=== PATIENT | male | born 1940 | race Caucasian/White ===

== ENCOUNTER 2016-10-14 03:25 | Inpatient (IN) | payer MEDICARE, BC ==
[~2016-10-14] VITALS: Ht 167.6 cm; Wt 86.1 kg
[~2016-10-14 03:25] MED LIST: ACET50TA PO; ALEV220C2 PO; ASPI81TA83 OR; DORZ2SOL OU; GLUC500T OR; GLYB2.5T6 OR; REST0.05 OU; TRAV0.00 OU; TRIC145T19 OR
[2016-10-14] MEDS ORDERED: FISH5CAP PO ×2 (03:39→07:48)
[2016-10-14] MEDS ORDERED: LIPI20TA PO (03:39)
[2016-10-14 04:58] LABS: BASO % 0.3 % (0.0-1.0); EOS # 0.2 K/mm3 (0.0-0.50); EOS % 2.5 % (0.0-3.0); LARGE UNSTAINED CELL # 0.2 K/mm3 (0.0-0.4); LARGE UNSTAINED CELL % 2.1 % (0.0-4.0); LYMPH # 0.8 K/mm3 (1.5-4.5); MEAN CORPUSCULAR HEMOGLOBIN 35.9 pg (27.0-33.0); MEAN CORPUSCULAR HGB CONC 34.7 g/dl (32.0-36.5); MEAN CORPUSCULAR VOLUME 103.4 fl (80.0-96.0); MONO # 0.4 K/mm3 (0.0-0.8); MONO % 5.2 % (0.0-5.0); NEUTROPHILS # 5.9 K/mm3 (1.8-7.7); NEUTROPHILS % 78.9 % (36.0-66.0); PLATELET COUNT, AUTOMATED 109 k/mm3 (150-450); RED CELL DISTRIBUTION WIDTH 12.3 % (11.5-14.5); VENOUS BASE EXCESS 0.7 (-2.0-2.0); VENOUS O2 SATURATION 95.7 % (60.0-80.0); VENOUS PARTIAL PRESSURE O2 76.4 mmHg (30.0-50.0); VENOUS STANDARD HCO3 25.1 MEQ/L; VENOUS TOTAL CO2 26.7 MEQ/L (24.0-28.0); WHITE BLOOD COUNT 7.5 K/mm3 (4.0-10.0)
[2016-10-14 05:23] LABS: ANION GAP 8 MEQ/L (8-16); BLOOD UREA NITROGEN 12 MG/DL (7-18); CALCIUM LEVEL 8.5 MG/DL (8.8-10.2); CARBON DIOXIDE LEVEL 30 MEQ/L (21-32); CHLORIDE LEVEL 99 MEQ/L (98-107); CREATININE FOR GFR 0.93 MG/DL (0.70-1.30); GLOMERULAR FILTRATION RATE > 60.0 (>42); GLUCOSE, FASTING 255 MG/DL (83-110); SODIUM LEVEL 137 MEQ/L (136-145)
[2016-10-14] MEDS: IPRATROPIUM 0.5MG/ALBUTEROL 2.5MG INH SOL UD 3ML (DUONEB)(J7620) NEB PRN (05:57)
[2016-10-14] MEDS ORDERED: FUROSEMIDE 40 MG/4 ML VIAL (J1940) IV ONE (06:45)
[2016-10-14] MEDS ORDERED: ATOR1TAB21 PO (07:48)
[2016-10-14] MEDS ORDERED: ICAP1CAP PO (07:48)
[2016-10-14] MEDS ORDERED: REFR0.5D8 OU (07:48)
[2016-10-14] MEDS ORDERED: TIMO5OPD OU (07:48)
[2016-10-14] MEDS ORDERED: XIID5DRO OU (07:48)
[2016-10-14] MEDS ORDERED: GLIP2.5T2 PO (07:48)
[2016-10-14] MEDS ORDERED: ALEV1TAB PO (07:48)
[2016-10-14] MEDS ORDERED: ALEV220T26 PO (07:48)
[2016-10-14] MEDS ORDERED: TYLE325T5 PO (07:50)
--- NOTE | 2016-10-14 08:37 | REP ---
Clinical: Cough and dyspnea . Comparison: 12/21/2013 . Technique: PA and lateral. Findings: The mediastinum and cardiac silhouette are normal. The lung armstrong demonstrate chronic-appearing changes without effusion, or pneumothorax. Subtle basilar atelectasis cannot be excluded. The skeletal structures are intact and normal. Impression: 1. Chronic-appearing stable changes. 2. Cannot exclude subtle basilar atelectasis. Signed by Vik Adame MD 10/14/2016 08:27 A
[2016-10-14] MEDS ORDERED: GLUCAGON FOR INJ 1 MG VIAL (J1610) SC PRN (09:00)
[2016-10-14] MEDS ORDERED: GLUCOSE 4 GM CHEW TABLET PO PRN (09:00)
[2016-10-14] MEDS ORDERED: POLYVINYL ALCOHOL OPHTH SOLN 15 ML(LIQUITEARS) OU PRN (09:00)
[2016-10-14] MEDS: ENOXAPARIN 40 MG/0.4 ML SYRINGE (J1650) SC SCH (09:00)
[2016-10-14] MEDS: TIMOLOL MALEATE 0.5% OPHTH SOLN 5 ML OU SCH ×2 (09:00→20:49)
[2016-10-14] MEDS ORDERED: DEXTROSE 50% 50 ML SYRINGE IV PRN (09:00)
[2016-10-14] MEDS ORDERED: ONDANSETRON 4MG/2ML VIAL (J2405) IV PRN (09:00)
[2016-10-14] MEDS: SIMETHICONE 80 MG CHEW TAB PO SCH ×4 (09:00→20:50)
[2016-10-14] MEDS ORDERED: ALBUTEROL SULFATE 2.5 MG/0.5 ML INH NEB SOLN INH PRN (09:00)
[2016-10-14] MEDS ORDERED: ACETAMINOPHEN TAB 650MG DOSE (2X325MG) PO PRN (09:00)
[2016-10-14] MEDS ORDERED: ENTER DRUG NAME HERE (PATIENT'S OWN MED) OU SCH (09:00)
--- NOTE | 2016-10-14 10:09 | HPE ---
DATE OF ADMISSION: 10/14/2016 Mr. Ramirez is a patient of Dr. Street and Dr. Francis. Chief complaint is "I was panicking because I couldn't breathe." SUMMARY OF PRESENTATION: This is a 76-year-old who has been feeling increasingly unwell for 6 days. 6 days ago, he had a sore throat, cough developed at around 5 days ago. He has had increasing shortness of breath for 2 days that developed. Friday evening preceding this admission when he noticed he had developed dyspnea on exertion, having trouble getting to the bathroom. It progressed to the point where he has dyspnea at rest currently. It was associated with subjective fever with an objective temperature of less than 100. He had no chills but was experiencing sweats. Did describe orthopnea but no paroxysmal nocturnal dyspnea. He does have new swelling of both feet. Over the last 3 days, he has spent most of his time laying in bed. He has not had a recent stress test or echocardiogram. Does follow with Dr. Francis every 6 months for a pacemaker check. He does have no chest discomfort or pain, but does have some what seems to be abdominal discomfort with deep breathing. He has noticed that his abdomen has become more distended as well. Past medical history is notable for diabetes, hyperlipidemia, sick sinus syndrome status post pacemaker, history of retinal detachment, history of glaucoma. He did get a flu shot this year. He has had his pneumococcal vaccine, hepatitis A, hepatitis B, Prevnar, Tdap and varicella. He has listed ALLERGIES to BACLOFEN, BLUE PIGMENT #63, ERYTHROMYCIN, CLARITIN and TAMIFLU. Tamiflu caused severe facial swelling. Medications at home include: - Tylenol as needed - Aleve P.M. - naproxen - glipizide/metformin 2.5/500 one tablet twice a day - multivitamins - atorvastatin 20 mg by mouth nightly - Artificial Tears - fish oil one capsule twice a day - Xiidra 5% drop both eyes twice a day - Timolol 0.5% one drop both eyes twice a day Socially, he lives in [place]. He is an avid fisherman but is beginning to transition to golf. [place] He lives with his . No smoking. Family history is notable for a mother who had of cancer, with coronary artery disease in his father. Surgical history is notable for left inguinal hernia repair, back surgery, hydrocele repair, lumbar laminectomy, left ankle cyst surgery, left eye tarsal strip, colonoscopy, right shoulder rotator cuff repair, pacemaker 2010, bilateral cataract extraction 2011, vitrectomy on the right in 2012, bilateral glaucoma correction 2012, retinal repair 2014, bilateral blepharoplasty 2016. Socially, he has not smoked in over 10 years. Review of systems is notable for no headache, no visual changes. He did not have runny nose. Sore throat has resolved. No neck pain. He does have cough and wheeze. Breathing is more difficult when he lays back. He says it sounds like there is two machines running in his chest when he tries to lay back to breathe and he becomes more short of breath. He has dyspnea on exertion. Although his abdomen is distended, he has no discomfort. He has been passing a lot more gas eructing. He has lower extremity edema. Otherwise unremarkable. On physical exam, temperature in the emergency room (ER) was recorded as 97.0, pulse 60, appears to be paced on monitor. Respiratory rate was 24 at 3 a.m., appears to be closer 18 on my exam. Blood pressure is currently 161/70, 90% on 2 liters nasal cannula. He is awake, appropriately interactive, pleasantly conversant, somewhat anxious about being in the hospital. He is apparently quit claustrophobic and being in a room without a window. It is negatively effecting his mental status currently. Sinus are nontender. Pupils equally round and reactive, anicteric. Nasal septum is midline. No nasal drainage is noted. Mucous membranes are moist. Neck is supple, thick. No obvious jugular venous pulse (JVP). Breathing is symmetrical with scattered crackles and occasional polyphonic wheeze. rested. There is no dullness to percussion. Heart is in regular rate and rhythm. Pacemaker is in place in the left upper chest. Radial pulses are 2+. Capillary refill is less than 2 seconds. There is 1+ lower extremity edema extending to just above the ankles. He is moving all four extremities. Strength is symmetrical. Cranial nerves II-XII are grossly intact. He seems slightly anxious with normal mood and affect. White cell count 7.5, hemoglobin 14.3, platelets of 109. BUN 12, creatinine 0.93. BNP is 43. 99.7. Blood gas is 7.41, 41, 76, 25 and 95% on supplemental oxygen. Blood cultures are pending. Chest x-ray shows chronic stable changes and is read as subtle basilar atelectasis. I am suspicious for some increase in vascular markings. EKG shows an interventricular conduction delay. No acute ST-T wave changes. My assessment is as follows: This is a 76-year-old at presentation with shortness of breath, dyspnea on exertion, orthopnea, cough in the setting of perhaps a viral prodrome. I am suspicious for decompensated congestive heart failure. Patient will be admitted to the progressive care unit (PCU) for at a two midnight hospital stay. Plan will be as follows: 1. Cardiovascular. Patient has history of sick sinus syndrome, has a pacemaker in place. Will pursue gentle diuresis, obtain old records from Francis's office, obtain a new 2D echocardiogram and monitor on telemetry. Will repeat troponins once. 2. Patient has diabetes. Will hold his metformin and glipizide. Will continue with insulin sliding scale coverage and a consistent carbohydrate, 2 gram sodium diet. 3. Patient has hyperlipidemia. Will continue his statin drug and fish oil. 4. Infectious disease. It is possible that patient has an element of bronchitis. I have elected to start nebulizer therapy likely, if it is not helpful can be discontinued tomorrow. I do not believe there is a role of steroids at this point, but again that can be considered pending on clinical course. I do believe there is a role for respiratory panel in an attempt to avoid antibiotics. Deep venous thrombosis (DVT) prophylaxis is ordered. 5. Patient is quite claustrophobic and I have asked that he be moved to a PCU room with a window as soon as reasonably possible. Although, the hospital is quite deluged with the patients .
[2016-10-14] MEDS: ALBUTEROL SULFATE 2.5 MG/0.5 ML INH NEB SOLN INH SCH ×4 (10:15→20:38)
[2016-10-14 11:17] VITALS: O2SAT 93
[2016-10-14 12:02] VITALS: BP 133/65
[2016-10-14] MEDS: HumaLOG INSULIN (NovoLOG) PER UNIT SC SCH ×3 (13:30→20:49)
[2016-10-14] MEDS: OMEGA-3 1050MG CAPSULE PO SCH ×2 (15:53→20:50)
[2016-10-14 16:00] VITALS: BP 151/69
[2016-10-14 17:00] VITALS: BP 150/58
[2016-10-14] MEDS ORDERED: FUROSEMIDE 40 MG/4 ML VIAL (J1940) IV SCH (17:00)
[2016-10-14 20:00] VITALS: BP 159/76
[2016-10-14] MEDS: ATORVASTATIN 20 MG TAB PO SCH (20:50)
--- NOTE | 2016-10-14 21:05 | ECGEPIP ---
Stationary ECG Study [facility] - ED Test Date: 2016-10-14 Pat Name: QUINN CORTEZ Department: Room: - Gender: M Armature Connector: AlejandroB: 1940 Requested By: WENCESLAO Prather Order Number: [id number] Reading MD: Adan Glasgow Measurements Intervals [place] Rate: 60 P: 81 CO: 212 QRS: 55 QRSD: 114 T: 52 QT: 422 QTc: 422 Interpretive Statements ELECTRONIC ATRIAL PACEMAKER MODERATE INTRAVENTRICULAR CONDUCTION DELAY NONSPECIFIC ST T WAVE CHANGES NO OLD ECG FOR COMPARISON Electronically Signed On 10-14-2016 21:05:23 EDT by Adan Glasgow
[2016-10-14 23:58] VITALS: BP 160/77
[2016-10-15 04:00] VITALS: BP 161/67
[2016-10-15 06:53] LABS: MEAN CORPUSCULAR HEMOGLOBIN 35.2 pg (27.0-33.0); MEAN CORPUSCULAR HGB CONC 34.8 g/dl (32.0-36.5); MEAN CORPUSCULAR VOLUME 101.3 fl (80.0-96.0); RED CELL DISTRIBUTION WIDTH 12.5 % (11.5-14.5); WHITE BLOOD COUNT 8.8 K/mm3 (4.0-10.0)
[2016-10-15 07:09] LABS: ANION GAP 6 MEQ/L (8-16); BLOOD UREA NITROGEN 18 MG/DL (7-18); CALCIUM LEVEL 9.4 MG/DL (8.8-10.2); CARBON DIOXIDE LEVEL 32 MEQ/L (21-32); CHLORIDE LEVEL 97 MEQ/L (98-107); CREATININE FOR GFR 0.96 MG/DL (0.70-1.30); GLOMERULAR FILTRATION RATE > 60.0 (>42); GLUCOSE, FASTING 271 MG/DL (83-110); MAGNESIUM LEVEL 2.2 MG/DL (1.8-2.4); POTASSIUM SERUM 3.6 MEQ/L (3.5-5.1); SODIUM LEVEL 135 MEQ/L (136-145)
[2016-10-15] MEDS: ALBUTEROL SULFATE 2.5 MG/0.5 ML INH NEB SOLN INH SCH ×4 (07:29→21:00)
[2016-10-15] MEDS ORDERED: guaiFENesin 200 MG TAB PO PRN (07:45)
--- NOTE | 2016-10-15 07:48 | IPNPDOC ---
Subjective Date Seen The patient was seen on 10/15/16. Subjective Chief Complaint/HPI The patient is a 76-year-old male admitted with a reason for visit of Chf Exacerbation. General: Denies: ROS Unobtainable, Chills, Night Sweats, Fatigue, Malaise, Normal Appetite, Other Symptoms Constitutional: Denies: Chills, Fever, Malaise, Night Sweats, Weakness, Fatigue , Weight Loss, Lethargy, Other Eyes: Denies: Pain, Vision change, Conjunctivae inflammation, Eyelid inflammation, Redness, Other ENT: Denies: Head Aches, Ear Pain, Dysphagia, Sinus Congestion, Post Nasal Drip , Sore Throat, Epistaxis, Other Symptoms Skin: Denies: Rash, Lesions, Jaundice, Bruising, Itching, Dry, Breakdown, Nail Changes, Other Pulmonary: Reports: Dyspnea, Cough, Denies: Pleuritic Chest Pain, Other Symptoms Cardiovascular: Reports: Orthopnea, Denies: Chest Pain, Palpitations, Paroxysmal Noc. Dyspnea, Edema, Lt Headedness, Other Symptoms Gastrointestinal: Denies: Nausea, Vomiting, Abdominal Pain, Diarrhea, Constipation, Melena, Hematochezia, Other Symptoms Genitourinary: Denies: Dysuria, Frequency, Incontinence, Hematuria, Retention, Other Symptoms Endocrine: Denies: Polydipsia, Polyuria Objective Physical Examination General Exam: Positive: Alert, Cooperative, No Acute Distress Eye Exam: Positive: PERRLA, Conjunctiva & lids normal, Negative: EOMI Chest Exam: Positive: Normal air movement, Other (b/l crackles) Heart Exam: Positive: Rate Normal Telemetry: Positive: No significant arrhythmia, Sinus Abdomen Exam: Positive: Normal bowel sounds, Soft Extremity Exam: Negative: Edema Psych Exam: Positive: Oriented x 3 Assessment /Plan Problems (1) CHF exacerbation Status: Acute Discussed With: Patient Problem Specific Plan: Monitor Clinically, Repeat Labs, Repeat Tests Problem Text: increase lasix to q8h with net negative 2500 daily threshold 2d echo pending IS, mucolytics, acapella (2) DM2 (diabetes mellitus, type 2) Permanent Comment: On glyburide and metformin; last HgbA1c 5.4% in 03/2013. Last Edited By: Joshua Street M.D. on Jul 27, 2013 20:39 Status: Chronic Discussed With: Patient Problem Specific Plan: Repeat Labs Problem Text: Previous A1C noted. Will f/u as o/p with PCP. (3) Mixed hyperlipidemia Permanent Comment: Not on statin but control reasonable in 03/2013. Abnormal transaminases have delayed therapy. Last Edited By: Joshua Street M.D. on Jul 20:40 Status: Chronic Discussed With: Patient Problem Text: Follow up as o/p with PCP. (4) Cardiac pacemaker in situ Permanent Comment: Pacemaker placed in 2010 for sick sinus syndrome. Last Edited By: Joshua Street M.D. on Jul 27, 2013 20:41 Status: Chronic Discussed With: Patient Problem Specific Plan: Monitor Clinically (5) Glaucoma Status: Chronic Plan/VTE VTE Prophylaxis Ordered?: Yes Plan Diet: Continue Current Activity: Continue Current Diagnostics: Repeat Labs in AM, TTE Anticipated Discharge: Home, Home With Services VS, I&O, 24H, Fishbone Vital Signs/I&O Vital Signs Date Time Temp Pulse Resp B/P (MAP) Pulse Ox O2 Delivery O2 Flow Rate FiO2 10/15/16 04:00 97.5 70 20 161/67 (98) 95 Nasal Cannula 2.0 I&O- Last 24 Hours up to 6 AM 10/15/16 06:00 Intake Total 995 ml Output Total 1900 ml Balance -905 ml Laboratory Data 24H LABS Laboratory Tests 2 10/14/16 09:28: Magnesium Level 1.9 10/14/16 12:04: Total Creatine Kinase 133, Creatine Kinase MB 1.4, Creatine Kinase MB Relative Index 1.05, Troponin I < 0.02 10/14/16 12:32: Bedside Glucose (Misc Panel) 368H 10/14/16 17:12: Bedside Glucose (Misc Panel) 289H 10/14/16 20:38: Bedside Glucose (Misc Panel) 367H 10/15/16 06:34: Anion Gap 6L, Glomerular Filtration Rate > 60.0, Blood Urea Nitrogen 18, Creatinine 0.96, Sodium Level 135L, Potassium Level 3.6, Chloride Level 97L, Carbon Dioxide Level 32, Calcium Level 9.4, Magnesium Level 2.2 CBC/BMP Laboratory Tests 10/15/16 06:34 Red Blood Count 4.24 L, Mean Corpuscular Volume 101.3 H, Mean Corpuscular Hemoglobin 35.2 H, Mean Corpuscular Hemoglobin Concent 34.8, Red Cell Distribution Width 12.5, Calcium Level 9.4 Microbiology Microbiology 10/14/16 Blood Culture - Preliminary, Resulted No growth after 24 hours . All specim... 10/14/16 Blood Culture - Preliminary, Resulted No growth after 24 hours . All specim... 10/14/16 Respiratory Virus Panel (PCR) ([facility]) - Final, Complete Human Metapneumovirus ADELINE SAMUEL MD October 15, 2016 07:48
[2016-10-15 08:00] VITALS: BP 154/68
[2016-10-15] MEDS: FUROSEMIDE 40 MG/4 ML VIAL (J1940) IV SCH ×3 (08:45→23:35)
[2016-10-15] MEDS: HumaLOG INSULIN (NovoLOG) PER UNIT SC SCH ×4 (08:45→20:50)
[2016-10-15] MEDS: OMEGA-3 1050MG CAPSULE PO SCH ×2 (08:45→20:51)
[2016-10-15] MEDS: TIMOLOL MALEATE 0.5% OPHTH SOLN 5 ML OU SCH ×2 (08:46→20:51)
[2016-10-15] MEDS: ENOXAPARIN 40 MG/0.4 ML SYRINGE (J1650) SC SCH (08:46)
[2016-10-15 12:00] VITALS: BP 140/63
[2016-10-15 16:00] VITALS: BP 148/65
[2016-10-15 20:00] VITALS: BP 133/61
[2016-10-15] MEDS: ATORVASTATIN 20 MG TAB PO SCH (20:51)
[2016-10-15 23:59] VITALS: BP 143/68
[2016-10-16] VITALS (7 sets, daily range): BP systolic 130–157; BP diastolic 70–74; O2SAT 94
[2016-10-16 05:18] LABS: MEAN CORPUSCULAR HEMOGLOBIN 36.5 pg (27.0-33.0); MEAN CORPUSCULAR HGB CONC 35.4 g/dl (32.0-36.5); MEAN CORPUSCULAR VOLUME 103.1 fl (80.0-96.0); RED CELL DISTRIBUTION WIDTH 12.2 % (11.5-14.5); WHITE BLOOD COUNT 7.6 K/mm3 (4.0-10.0)
[2016-10-16 05:34] LABS: ALBUMIN 3.6 GM/DL (3.2-5.2); ALBUMIN/GLOBULIN RATIO 0.82 (1.00-1.93); ALKALINE PHOSPHATASE 114 U/L (45-117); ALT/SGPT 24 U/L (12-78); ANION GAP 12 MEQ/L (8-16); AST/SGOT 20 U/L (15-37); BILIRUBIN,TOTAL 1.4 MG/DL (0.2-1.0); BLOOD UREA NITROGEN 23 MG/DL (7-18); CALCIUM LEVEL 8.7 MG/DL (8.8-10.2); CARBON DIOXIDE LEVEL 30 MEQ/L (21-32); CHLORIDE LEVEL 94 MEQ/L (98-107); CHOLESTEROL LEVEL 91 MG/DL (<200); CREATININE FOR GFR 1.07 MG/DL (0.70-1.30); GLOMERULAR FILTRATION RATE > 60.0 (>42); GLUCOSE, FASTING 281 MG/DL (83-110); MAGNESIUM LEVEL 1.8 MG/DL (1.8-2.4); POTASSIUM SERUM 3.2 MEQ/L (3.5-5.1); SODIUM LEVEL 136 MEQ/L (136-145); TRIGLYCERIDES LEVEL 116 MG/DL (<150)
[2016-10-16] MEDS ORDERED: POTASSIUM CHLORIDE 10 MEQ SR TABLET PO ONE (06:30)
[2016-10-16] MEDS: ALBUTEROL SULFATE 2.5 MG/0.5 ML INH NEB SOLN INH SCH ×4 (07:10→19:59)
--- NOTE | 2016-10-16 08:25 | IPNPDOC ---
Subjective Date Seen The patient was seen on 10/16/16. Subjective Chief Complaint/HPI The patient is a 76-year-old male admitted with a reason for visit of Chf Exacerbation. General: Denies: ROS Unobtainable, Chills, Night Sweats, Fatigue, Malaise, Normal Appetite, Other Symptoms Constitutional: Denies: Chills, Fever, Malaise, Night Sweats, Weakness, Fatigue , Weight Loss, Lethargy, Other Eyes: Denies: Pain, Vision change, Conjunctivae inflammation, Eyelid inflammation, Redness, Other ENT: Denies: Head Aches, Ear Pain, Dysphagia, Sinus Congestion, Post Nasal Drip , Sore Throat, Epistaxis, Other Symptoms Skin: Denies: Rash, Lesions, Jaundice, Bruising, Itching, Dry, Breakdown, Nail Changes, Other Pulmonary: Reports: Dyspnea, Cough, Denies: Pleuritic Chest Pain, Other Symptoms Cardiovascular: Denies: Chest Pain, Palpitations, Orthopnea, Paroxysmal Noc. Dyspnea, Edema, Lt Headedness, Other Symptoms Gastrointestinal: Denies: Nausea, Vomiting, Abdominal Pain, Diarrhea, Constipation, Melena, Hematochezia, Other Symptoms Genitourinary: Denies: Dysuria, Frequency, Incontinence, Hematuria, Retention, Other Symptoms Objective Physical Examination General Exam: Positive: Alert, Cooperative, No Acute Distress Eye Exam: Positive: PERRLA, Conjunctiva & lids normal, Negative: EOMI Chest Exam: Positive: Normal air movement, Other (b/l crackles) Heart Exam: Positive: Rate Normal Telemetry: Positive: No significant arrhythmia, Sinus Abdomen Exam: Positive: Normal bowel sounds, Soft Extremity Exam: Negative: Edema Psych Exam: Positive: Oriented x 3 Assessment /Plan Problems (1) CHF exacerbation Status: Acute Discussed With: Patient Problem Specific Plan: Monitor Clinically, Repeat Labs, Repeat Tests Problem Text: increase lasix to q6h with net negative 2500 daily threshold 2d echo pending IS, mucolytics, acapella ct chest pending sob likely complicated with viral illness - human metapneumovirus (2) DM2 (diabetes mellitus, type 2) Permanent Comment: On glyburide and metformin; last HgbA1c 5.4% in 03/2013. Last Edited By: Joshua Street M.D. on Jul 27, 2013 20:39 Status: Chronic Discussed With: Patient Problem Specific Plan: Repeat Labs Problem Text: Previous A1C noted. Will f/u as o/p with PCP. (3) Mixed hyperlipidemia Permanent Comment: Not on statin but control reasonable in 03/2013. Abnormal transaminases have delayed therapy. Last Edited By: Johsua Street M.D. on Jul 20:40 Status: Chronic Discussed With: Patient Problem Text: Follow up as o/p with PCP. (4) Cardiac pacemaker in situ Permanent Comment: Pacemaker placed in 2010 for sick sinus syndrome. Last Edited By: Joshua Street M.D. on Jul 27, 2013 20:41 Status: Chronic Discussed With: Patient Problem Specific Plan: Monitor Clinically (5) Glaucoma Status: Chronic Plan/VTE VTE Prophylaxis Ordered?: Yes Plan Diet: Continue Current Activity: Continue Current Respiratory: Wean Oxygen Diagnostics: Repeat Labs in AM, CT, TTE Anticipated Discharge: Home, Home With Services VS, I&O, 24H, Fishbone Vital Signs/I&O Vital Signs Date Time Temp Pulse Resp B/P (MAP) Pulse Ox O2 Delivery O2 Flow Rate FiO2 10/16/16 07:45 97.5 85 20 130/72 (91) 94 Nasal Cannula 2.0 I&O- Last 24 Hours up to 6 AM 10/16/16 06:00 Intake Total 1440 ml Output Total 2650 ml Balance -1210 ml Laboratory Data 24H LABS Laboratory Tests 2 10/16/16 05:00: Anion Gap 12, Glomerular Filtration Rate > 60.0, Blood Urea Nitrogen 23H, Creatinine 1.07, Sodium Level 136, Potassium Level 3.2L, Chloride Level 94L, Carbon Dioxide Level 30, Calcium Level 8.7L, Aspartate Amino Transf (AST/SGOT) 20, Alanine Aminotransferase (ALT/SGPT) 24, Alkaline Phosphatase 114, Total Bilirubin 1.4H, Triglycerides Level 116, LDL Cholesterol 24.8, Total Protein 8.0 , Albumin 3.6, Magnesium Level 1.8, Albumin/Globulin Ratio 0.82L, Total Cholesterol 91, Non-HDL Cholesterol (LDL + VLDL) 48, Total HDL Cholesterol 43, Cholesterol/HDL Ratio 2.116 CBC/BMP Laboratory Tests 10/16/16 05:00 Red Blood Count 4.19 L, Mean Corpuscular Volume 103.1 H, Mean Corpuscular Hemoglobin 36.5 H, Mean Corpuscular Hemoglobin Concent 35.4, Red Cell Distribution Width 12.2, Calcium Level 8.7 L, Aspartate Amino Transf (AST/SGOT) 20, Alanine Aminotransferase (ALT/SGPT) 24, Alkaline Phosphatase 114, Total Bilirubin 1.4 H, Triglycerides Level 116, LDL Cholesterol 24.8, Total Protein 8.0, Albumin 3.6 Microbiology Microbiology 10/14/16 Blood Culture - Preliminary, Resulted No Growth after 48 hours. All Specime... 10/14/16 Blood Culture - Preliminary, Resulted No Growth after 48 hours. All Specime... 10/14/16 Respiratory Virus Panel (PCR) ([facility]) - Final, Complete Human Metapneumovirus ADELINE SAMUEL MD October 16, 2016 08:25
[2016-10-16] MEDS: TIMOLOL MALEATE 0.5% OPHTH SOLN 5 ML OU SCH ×2 (08:33→21:31)
[2016-10-16] MEDS: ENOXAPARIN 40 MG/0.4 ML SYRINGE (J1650) SC SCH (08:33)
[2016-10-16] MEDS: OMEGA-3 1050MG CAPSULE PO SCH ×2 (08:33→21:31)
[2016-10-16] MEDS: HumaLOG INSULIN (NovoLOG) PER UNIT SC SCH ×4 (08:33→21:31)
--- NOTE | 2016-10-16 10:03 | REP ---
Clinical: Shortness of breath. Comparison: 08/23/2010. Findings: Moderate diffuse bronchiectasis and age-related scattered scarring / interstitial changes are appreciated primarily involving the perihilar and left lower lobe regions. A few bullae in the right lower lobe measure up to 2.3 cm diameter. A chronic benign calcified granuloma is noted in the periphery of the right upper lobe and stable. No consolidation, significant nodule or mass lesion. No pleural effusion. No pneumothorax. No obvious axillary, hilar, or mediastinal adenopathy. Mediastinum demonstrates atherosclerotic changes to the thoracic aorta and coronary arteries without aortic aneurysm, cardiomegaly, or pericardial effusion. Surrounding osseous structures demonstrate degenerative changes. Impression: Chronic changes including moderate bronchiectasis and minimal scattered scarring / interstitial changes. No acute consolidation. Signed by Vik Adame MD 10/16/2016 09:55 A
[2016-10-16] MEDS: FUROSEMIDE 40 MG/4 ML VIAL (J1940) IV SCH ×3 (11:28→23:51)
[2016-10-16] MEDS: ATORVASTATIN 20 MG TAB PO SCH (21:31)
[2016-10-17 04:45] VITALS: BP 136/67
[2016-10-17 05:33] LABS: MEAN CORPUSCULAR HEMOGLOBIN 34.9 pg (27.0-33.0); MEAN CORPUSCULAR HGB CONC 34.8 g/dl (32.0-36.5); MEAN CORPUSCULAR VOLUME 100.5 fl (80.0-96.0); RED CELL DISTRIBUTION WIDTH 12.3 % (11.5-14.5); WHITE BLOOD COUNT 9.2 K/mm3 (4.0-10.0)
[2016-10-17] MEDS: FUROSEMIDE 40 MG/4 ML VIAL (J1940) IV SCH (05:40)
[2016-10-17 05:43] LABS: ANION GAP 7 MEQ/L (8-16); BLOOD UREA NITROGEN 24 MG/DL (7-18); CALCIUM LEVEL 8.7 MG/DL (8.8-10.2); CARBON DIOXIDE LEVEL 36 MEQ/L (21-32); CHLORIDE LEVEL 92 MEQ/L (98-107); CREATININE FOR GFR 1.15 MG/DL (0.70-1.30); GLOMERULAR FILTRATION RATE > 60.0 (>42); GLUCOSE, FASTING 279 MG/DL (83-110); POTASSIUM SERUM 3.4 MEQ/L (3.5-5.1); SODIUM LEVEL 135 MEQ/L (136-145)
[2016-10-17] MEDS: ALBUTEROL SULFATE 2.5 MG/0.5 ML INH NEB SOLN INH SCH ×4 (07:36→19:49)
[2016-10-17 07:46] VITALS: BP 135/75
[2016-10-17] MEDS: HumaLOG INSULIN (NovoLOG) PER UNIT SC SCH ×4 (07:54→21:15)
[2016-10-17] MEDS: OMEGA-3 1050MG CAPSULE PO SCH ×2 (08:55→21:14)
[2016-10-17] MEDS: TIMOLOL MALEATE 0.5% OPHTH SOLN 5 ML OU SCH ×2 (08:55→23:06)
[2016-10-17] MEDS: ENOXAPARIN 40 MG/0.4 ML SYRINGE (J1650) SC SCH (08:55)
--- NOTE | 2016-10-17 09:00 | IPNPDOC ---
Subjective Date Seen The patient was seen on 10/17/16. Subjective Chief Complaint/HPI The patient is a 76-year-old male admitted with a reason for visit of Chf Exacerbation. General: Denies: ROS Unobtainable, Chills, Night Sweats, Fatigue, Malaise, Normal Appetite, Other Symptoms Constitutional: Denies: Chills, Fever, Malaise, Night Sweats, Weakness, Fatigue , Weight Loss, Lethargy, Other Eyes: Denies: Pain, Vision change, Conjunctivae inflammation, Eyelid inflammation, Redness, Other ENT: Denies: Head Aches, Ear Pain, Dysphagia, Sinus Congestion, Post Nasal Drip , Sore Throat, Epistaxis, Other Symptoms Skin: Denies: Rash, Lesions, Jaundice, Bruising, Itching, Dry, Breakdown, Nail Changes, Other Pulmonary: Reports: Dyspnea, Denies: Cough, Pleuritic Chest Pain, Other Symptoms Cardiovascular: Denies: Chest Pain, Palpitations, Orthopnea, Paroxysmal Noc. Dyspnea, Edema, Lt Headedness, Other Symptoms Gastrointestinal: Denies: Nausea, Vomiting, Abdominal Pain, Diarrhea, Constipation, Melena, Hematochezia, Other Symptoms Genitourinary: Denies: Dysuria, Frequency, Incontinence, Hematuria, Retention, Other Symptoms Objective Physical Examination General Exam: Positive: Alert, Cooperative, No Acute Distress Eye Exam: Positive: PERRLA, Conjunctiva & lids normal, Negative: EOMI Chest Exam: Positive: Normal air movement, Other (b/l crackles) Heart Exam: Positive: Rate Normal Telemetry: Positive: No significant arrhythmia, Sinus, Bradycardia, Other Telemetry: (paced rhythm, rolf) Abdomen Exam: Positive: Normal bowel sounds, Soft Extremity Exam: Negative: Edema Psych Exam: Positive: Oriented x 3 Assessment /Plan Problems (1) CHF exacerbation Status: Resolved Discussed With: Patient Problem Specific Plan: Monitor Clinically, Repeat Labs, Repeat Tests Problem Text: appears euvolemic today - grossly compensated 2d echo pending IS, increase dosage mucolytics - patient states still difficulty with expectorating, acapella ct chest noted sob likely complicated with viral illness - human metapneumovirus (2) DM2 (diabetes mellitus, type 2) Permanent Comment: On glyburide and metformin; last HgbA1c 5.4% in 03/2013. Last Edited By: Joshua Street M.D. on Jul 27, 2013 20:39 Status: Chronic Discussed With: Patient Problem Specific Plan: Repeat Labs Problem Text: Previous A1C noted. Will f/u as o/p with PCP. (3) Mixed hyperlipidemia Permanent Comment: Not on statin but control reasonable in 03/2013. Abnormal transaminases have delayed therapy. Last Edited By: Joshua Street M.D. on Jul 20:40 Status: Chronic Discussed With: Patient Problem Text: Follow up as o/p with PCP. (4) Cardiac pacemaker in situ Permanent Comment: Pacemaker placed in 2010 for sick sinus syndrome. Last Edited By: Joshua Street M.D. on Jul 27, 2013 20:41 Status: Chronic Discussed With: Patient Problem Specific Plan: Monitor Clinically (5) Glaucoma Status: Chronic Plan/VTE VTE Prophylaxis Ordered?: Yes Plan Diet: Continue Current Activity: Continue Current Therapy: PT Respiratory: Wean Oxygen Diagnostics: Repeat Labs in AM, TTE Anticipated Discharge: Home Wean O2, increase mucolytics, d/c diuretics, transfer to floor VS, I&O, 24H, Fishbone Vital Signs/I&O Vital Signs Date Time Temp Pulse Resp B/P (MAP) Pulse Ox O2 Delivery O2 Flow Rate FiO2 10/17/16 07:46 96.7 85 18 135/75 (95) 92 Nasal Cannula 1.0 I&O- Last 24 Hours up to 6 AM 10/17/16 05:59 Intake Total 1440 ml Output Total 2400 ml Balance -960 ml Laboratory Data 24H LABS Laboratory Tests 2 10/16/16 11:07: Bedside Glucose (Misc Panel) 398H 10/16/16 16:27: Bedside Glucose (Misc Panel) 361H 10/16/16 21:11: Bedside Glucose (Misc Panel) 354H 10/17/16 05:08: Anion Gap 7L, Glomerular Filtration Rate > 60.0, Blood Urea Nitrogen 24H, Creatinine 1.15, Sodium Level 135L, Potassium Level 3.4L, Chloride Level 92L, Carbon Dioxide Level 36H, Calcium Level 8.7L, Magnesium Level 2.0 CBC/BMP Laboratory Tests 10/17/16 05:08 Red Blood Count 4.39, Mean Corpuscular Volume 100.5 H, Mean Corpuscular Hemoglobin 34.9 H, Mean Corpuscular Hemoglobin Concent 34.8, Red Cell Distribution Width 12.3, Calcium Level 8.7 L Microbiology Microbiology 10/14/16 Blood Culture - Preliminary, Resulted No Growth after 72 hours. All specime... 10/14/16 Blood Culture - Preliminary, Resulted No Growth after 72 hours. All specime... 10/14/16 Respiratory Virus Panel (PCR) ([facility]) - Final, Complete Human Metapneumovirus ADELINE SAMUEL MD October 17, 2016 09:00
[2016-10-17] MEDS: guaiFENesin 200 MG TAB PO SCH ×3 (12:03→23:06)
[2016-10-17 15:28] VITALS: BP 174/77
--- NOTE | 2016-10-17 17:01 | ECHO ---
DATE OF PROCEDURE: 10/15/2016 REFERRING PHYSICIAN: Jonathan Sultana MD INDICATION: Localized edema. HEIGHT: 168 cm WEIGHT: 90 kg 2D MEASUREMENTS: LVOT: 1.8 cm Ventricular septum: 1.22 cm Posterior wall: 1.21 cm Left ventricle diastole: 3.3 cm Left atrium: 3.1 cm Aortic root: 3.3 cm Inferior vena cava: 1.9 cm DOPPLER MEASUREMENTS: Aortic valve velocity: 239 cm/s Peak aortic valve gradient: 23 mmHg Mean aortic valve gradient: 12 mmHg LVOT velocity: 75.9 cm/s Mitral E velocity: 62.7 cm/s Mitral A velocity: 92.8 cm/s Mitral deceleration time: 444 ms Very mild tricuspid regurgitation. Estimated right ventricle systolic pressure 28 mmHg assuming a right atrial pressure of 5 mmHg. Pulmonary artery systolic pressure 25 mmHg by pulmonary acceleration time method. MITRAL ANNULAR TISSUE DOPPLER: E prime septal: 6.6 cm/s E prime lateral: 8.3 cm/s DESCRIPTION: Rhythm was a mix of mostly atrial paced rhythm and perhaps some sinus rhythm. This was a moderately technically difficult echocardiogram. No pericardial effusion. This was a 2D, M-mode, color flow Doppler and pulse wave Doppler examination that included mitral annular tissue Doppler. CONCLUSIONS: 1. Very mild concentric left ventricle hypertrophy. Normal left ventricle (LV) wall motion and wall thickening. Normal LV systolic function. Left ventricular ejection fraction (LVEF) of 65% by visual estimate. Grade 1 LV diastolic dysfunction (impaired relaxation filling pattern). 2. 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 Very mild aortic stenosis. No aortic regurgitation. 3. Mild mitral annular calcification. No mitral regurgitation detected. 4. Presence of endocardial, right atrial and right ventricle pacemaker leads. 5. Moderately technically difficult echocardiogram.
[2016-10-17] MEDS: ATORVASTATIN 20 MG TAB PO SCH (21:15)
[2016-10-17 22:00] VITALS: BP 164/75
[2016-10-18 06:00] VITALS: BP 156/75
[2016-10-18] MEDS: guaiFENesin 200 MG TAB PO SCH (06:04)
[2016-10-18 06:15] LABS: MEAN CORPUSCULAR HEMOGLOBIN 35.8 pg (27.0-33.0); MEAN CORPUSCULAR HGB CONC 35.1 g/dl (32.0-36.5); MEAN CORPUSCULAR VOLUME 102.1 fl (80.0-96.0); WHITE BLOOD COUNT 7.8 K/mm3 (4.0-10.0)
[2016-10-18 06:29] LABS: ANION GAP 7 MEQ/L (8-16); BLOOD UREA NITROGEN 25 MG/DL (7-18); CALCIUM LEVEL 8.6 MG/DL (8.8-10.2); CARBON DIOXIDE LEVEL 34 MEQ/L (21-32); CHLORIDE LEVEL 94 MEQ/L (98-107); CREATININE FOR GFR 1.01 MG/DL (0.70-1.30); GLOMERULAR FILTRATION RATE > 60.0 (>42); GLUCOSE, FASTING 247 MG/DL (83-110); MAGNESIUM LEVEL 2.1 MG/DL (1.8-2.4); POTASSIUM SERUM 3.3 MEQ/L (3.5-5.1); SODIUM LEVEL 135 MEQ/L (136-145)
[2016-10-18] MEDS: ALBUTEROL SULFATE 2.5 MG/0.5 ML INH NEB SOLN INH SCH (07:25)
[2016-10-18] MEDS ORDERED: POTASSIUM CHLORIDE 10 MEQ SR TABLET PO ONE (08:45)
[2016-10-18] MEDS: ENOXAPARIN 40 MG/0.4 ML SYRINGE (J1650) SC SCH (08:58)
[2016-10-18] MEDS: OMEGA-3 1050MG CAPSULE PO SCH (08:58)
[2016-10-18] MEDS: HumaLOG INSULIN (NovoLOG) PER UNIT SC SCH (08:59)
[2016-10-18] MEDS: TIMOLOL MALEATE 0.5% OPHTH SOLN 5 ML OU SCH (09:04)
--- NOTE | 2016-10-18 10:26 | DS.PDOC ---
Discharge Summary General Date of Admission October 14, 2016 at 08:47 Date of Discharge 10/18/16 Primary Care Physician: Joshua Street Discharge Summary PROCEDURES PERFORMED DURING STAY: [None]. DISCHARGE DIAGNOSES: 1. CHF grade 1 LV diastolic dysfunction 2. Viral respiratory infection - human metapneumovirus 3. diabetes 4. dyslipidemia 5. SSS - s/p PPM 6. glaucoma COMPLICATIONS/CHIEF COMPLAINT: Chf Exacerbation. HOSPITAL COURSE: 76 yo male presented for one week history of sore throat, cough and shortness of breath with subjective fevers. Admits to sick contacts with viral upper respiratory illness. Was found to be in respiratory distress requiring supplemental oxygen, clinically in heart failure including orthopnea and lower extremity edema. Responded well to diuresis with IV lasix, but was still short of breath with mild increase in creatinine, and clinical euvolemia. Lasix discontinued, mucolytics increased with acapella and incentive spirometry. Respiratory status improved with good oxygen saturation on room air. Discharged in stable condition with instructions as indicated. DISCHARGE MEDICATIONS: Please see below. ALLERGIES: Please see below. PHYSICAL EXAMINATION ON DISCHARGE: VITAL SIGNS: Please see below. GENERAL: NAD HEENT: NC/AT, EOMI, PERRL NECK: supple CARDIOVASCULAR EXAMINATION: +S1S2, RRR RESPIRATORY EXAMINATION: CTA B/L ABDOMINAL EXAMINATION: soft, NT, +BS EXTREMITIES: no edema LABORATORY DATA: Please see below. IMAGIND Echo CONCLUSIONS: 1. Very mild concentric left ventricle hypertrophy. Normal left ventricle (LV) wall motion and wall thickening. Normal LV systolic function. Left ventricular ejection fraction (LVEF) of 65% by visual estimate. Grade 1 LV diastolic dysfunction (impaired relaxation filling pattern). 2. 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 Very mild aortic stenosis. No aortic regurgitation. 3. Mild mitral annular calcification. No mitral regurgitation detected. 4. Presence of endocardial, right atrial and right ventricle pacemaker leads. 5. Moderately technically difficult echocardiogram. PROGNOSIS: Stable ACTIVITY: [As tolerated]. DIET: Carb consistent DISCHARGE PLAN: DISPOSITION: Discharge home DISCHARGE INSTRUCTIONS: 1. Follow up PCP Dr. Street as scheduled Friday10/22/16 2. Medications as directed. DISCHARGE CONDITION: [Stable]. TIME SPENT ON DISCHARGE: Greater than 30 minutes. Vital Signs/I&Os Vital Signs Date Time Temp Pulse Resp B/P (MAP) Pulse Ox O2 Delivery O2 Flow Rate FiO2 5/19/17 09:14 92 Room Air 10/18/16 06:00 97.7 78 16 156/75 (102) 10/17/16 07:46 1.0 I&O- Last 24 Hours up to 6 AM 10/18/16 06:00 Intake Total 2160 ml Output Total 1000 ml Balance 1160 ml Laboratory Data Labs 24H Laboratory Tests 2 10/17/16 11:46: Bedside Glucose (Misc Panel) 337H 10/17/16 16:52: Bedside Glucose (Misc Panel) 378H 10/17/16 20:20: Bedside Glucose (Misc Panel) 391H 10/18/16 05:55: Anion Gap 7L, Glomerular Filtration Rate > 60.0, Blood Urea Nitrogen 25H, Creatinine 1.01, Sodium Level 135L, Potassium Level 3.3L, Chloride Level 94L, Carbon Dioxide Level 34H, Calcium Level 8.6L, Magnesium Level 2.1 CBC/BMP Laboratory Tests 10/18/16 05:55 Red Blood Count 4.16 L, Mean Corpuscular Volume 102.1 H, Mean Corpuscular Hemoglobin 35.8 H, Mean Corpuscular Hemoglobin Concent 35.1, Red Cell Distribution Width 12.0, Calcium Level 8.6 L FSBS Laboratory Tests Test 10/17/16 11:46 10/17/16 16:52 10/17/16 20:20 Range/Units Bedside Glucose (Misc Panel) 337 378 391 83-110 MG/DL Microbiology Microbiology 10/14/16 Blood Culture - Preliminary, Resulted No Growth after 72 hours. All specime... 10/14/16 Blood Culture - Preliminary, Resulted No Growth after 72 hours. All specime... 10/14/16 Respiratory Virus Panel (PCR) ([facility]) - Final, Complete Human Metapneumovirus Discharge Medications Scheduled (Glipizide/Metformin HCl 2.5-500 mg) 1 Tab Tab, 1 TAB PO BIDWM, (Reported) (Icaps Areds 2) 1 Cap Cap, 1 CAP PO DAILY, (Reported) (Fish Oil 1200 mg) 1 Cap Cap, 1 CAP PO BID, (Reported) (Aleve Pm 220-25 mg) 1 Tab Tab, 1 TAB PO QHS, (Reported) Atorvastatin Calcium (Atorvastatin Calcium) 20 Mg Tab, 20 MG PO QHS, (Reported) Lifitegrast (Xiidra) 5 % Jm, 1 DROP OU BID, (Reported) Naproxen Sodium (Aleve) 220 Mg Tab, 220 MG PO DAILY, (Reported) Timolol Maleate (Timolol Maleate) 0.5 % Vianey, 1 DROP OU BID, (Reported) Scheduled PRN Acetaminophen (Tylenol) 325 Mg Tab, 650 MG PO Q4H PRN for PAIN, (Reported) Carboxymethylcellulose Sodium (Refresh Tears) 0.5 % Jm, 1 DROP OU PRN PRN for DRY EYES, (Reported) Allergies Coded Allergies: Oseltamivir (Verified Allergy, Severe, SWELLING IN FACE, 10/14/16) Baclofen (Verified Allergy, Unknown, 09/02/12) Erythromycin (Verified Allergy, Unknown, 09/02/12) Loratadine (Verified Allergy, Unknown, 09/02/12) ADELINE SAMUEL MD October 18, 2016 10:26
== END 2016-10-18 10:50 | disposition home or self-care (01) | DRG 293 ==
LOC: M ED 07:43 → M ED INP 08:47 → M PCU 16:48 → M MSPAV 10-17 15:25
PROVIDERS: ADMIT Internal Medicine; ATTEND Internal Medicine
DX: I50.33 Acute on chronic diastolic (congestive) heart failure (principal); F40.240 Claustrophobia; E11.9 Type 2 diabetes mellitus without complications; I49.5 Sick sinus syndrome; B97.81 Human metapneumovirus as the cause of diseases classified elsewhere; J20.8 Acute bronchitis due to other specified organisms; E78.5 Hyperlipidemia, unspecified; H40.9 Unspecified glaucoma; Z79.84 Long term (current) use of oral hypoglycemic drugs; Z79.899 Other long term (current) drug therapy; Z88.1 Allergy status to other antibiotic agents; Z88.8 Allergy status to other drugs, medicaments and biological substances; Z95.0 Presence of cardiac pacemaker; Z91.02 Food additives allergy status; Z80.9 Family history of malignant neoplasm, unspecified; Z82.49 Family history of ischemic heart disease and other diseases of the circulatory system; Z87.891 Personal history of nicotine dependence

== ENCOUNTER → 2016-10-22 | Outpatient (CLI) | payer MEDICARE, BC ==
[~2016-10-22] MED LIST changes: +ALEV1TAB PO; +ALEV220T26 PO; +ATOR1TAB21 PO; +FISH5CAP PO; +GLIP2.5T2 PO; +ICAP1CAP PO; +LIPI20TA PO; +REFR0.5D8 OU; +TIMO5OPD OU; +TYLE325T5 PO; +XIID5DRO OU
[2016-10-22 14:04] LABS: ALBUMIN 3.8 GM/DL (3.2-5.2); ALBUMIN/GLOBULIN RATIO 1.12 (1.00-1.93); ALKALINE PHOSPHATASE 112 U/L (45-117); ALT/SGPT 31 U/L (12-78); ANION GAP 6 MEQ/L (8-16); AST/SGOT 26 U/L (15-37); BILIRUBIN,TOTAL 1.1 MG/DL (0.2-1.0); BLOOD UREA NITROGEN 13 MG/DL (7-18); CALCIUM LEVEL 8.9 MG/DL (8.8-10.2); CARBON DIOXIDE LEVEL 29 MEQ/L (21-32); CHLORIDE LEVEL 103 MEQ/L (98-107); CHOLESTEROL LEVEL 76 MG/DL (<200); CREATININE FOR GFR 0.86 MG/DL (0.70-1.30); GLOMERULAR FILTRATION RATE > 60.0 (>42); GLUCOSE, FASTING 226 MG/DL (83-110); POTASSIUM SERUM 4.5 MEQ/L (3.5-5.1); SODIUM LEVEL 138 MEQ/L (136-145); TOTAL PROTEIN 7.2 GM/DL (6.4-8.2); TRIGLYCERIDES LEVEL 183 MG/DL (<150)
== END ==
LOC: M WUC 08:30
PROVIDERS: ATTEND Internal Medicine
DX: E11.9 Type 2 diabetes mellitus without complications (principal); E78.5 Hyperlipidemia, unspecified
CPT/HCPCS: 36415; 80053; 80061; 82043; 83036; 83735; 99496; G0463

== ENCOUNTER → 2016-12-08 | Outpatient (CLI) | payer MEDICARE, BC ==
[~2016-12-08] MED LIST changes: +TIMO0.5S29 OU; -TIMO5OPD OU
[2016-12-08 18:33] LABS: ALBUMIN 4.3 GM/DL (3.2-5.2); ALKALINE PHOSPHATASE 107 U/L (45-117); ALT/SGPT 31 U/L (12-78); ANION GAP 6 MEQ/L (8-16); AST/SGOT 20 U/L (15-37); BILIRUBIN,TOTAL 1.1 MG/DL (0.2-1.0); BLOOD UREA NITROGEN 14 MG/DL (7-18); CALCIUM LEVEL 9.3 MG/DL (8.8-10.2); CARBON DIOXIDE LEVEL 29 MEQ/L (21-32); CHLORIDE LEVEL 104 MEQ/L (98-107); CREATININE FOR GFR 0.93 MG/DL (0.70-1.30); GLOMERULAR FILTRATION RATE > 60.0 (>42); GLUCOSE, FASTING 200 MG/DL (83-110); POTASSIUM SERUM 4.6 MEQ/L (3.5-5.1); SODIUM LEVEL 139 MEQ/L (136-145); TOTAL PROTEIN 7.6 GM/DL (6.4-8.2)
== END ==
LOC: M WUC 08:50
PROVIDERS: ATTEND Internal Medicine
DX: E11.9 Type 2 diabetes mellitus without complications (principal)

== ENCOUNTER → 2017-03-07 | Outpatient (REF) | payer MEDICARE, BC | LOC: M LAB REF 16:14 | PROVIDERS: ATTEND Physician Assistant | DX: R30.0 Dysuria (principal) ==

== ENCOUNTER → 2017-05-05 | Outpatient (CLI) | payer MEDICARE, BC ==
[2017-05-05 13:52] LABS: MEAN CORPUSCULAR HEMOGLOBIN 35.3 pg (27.0-33.0); MEAN CORPUSCULAR HGB CONC 34.3 g/dl (32.0-36.5); MEAN CORPUSCULAR VOLUME 103.1 fl (80.0-96.0); PLATELET COUNT, AUTOMATED 151 10^3/uL (150-450); WHITE BLOOD COUNT 5.9 10^3/uL (4.0-10.0)
[2017-05-05 14:48] LABS: ALBUMIN 4.4 GM/DL (3.2-5.2); ALBUMIN/GLOBULIN RATIO 1.42 (1.00-1.93); ALKALINE PHOSPHATASE 102 U/L (45-117); ALT/SGPT 34 U/L (12-78); ANION GAP 6 MEQ/L (8-16); AST/SGOT 21 U/L (7-37); BLOOD UREA NITROGEN 16 MG/DL (7-18); CALCIUM LEVEL 9.1 MG/DL (8.8-10.2); CARBON DIOXIDE LEVEL 32 MEQ/L (21-32); CHLORIDE LEVEL 102 MEQ/L (98-107); CHOLESTEROL LEVEL 104 MG/DL (<200); CREATININE FOR GFR 0.89 MG/DL (0.70-1.30); GLOMERULAR FILTRATION RATE > 60.0 (>42); GLUCOSE, FASTING 157 MG/DL (83-110); POTASSIUM SERUM 4.6 MEQ/L (3.5-5.1); SODIUM LEVEL 140 MEQ/L (136-145); TOTAL PROTEIN 7.5 GM/DL (6.4-8.2); TRIGLYCERIDES LEVEL 164 MG/DL (<150)
== END ==
LOC: M WUC 10:12
PROVIDERS: ATTEND Internal Medicine
DX: D78.89 Other postprocedural complications of the spleen (principal); E11.9 Type 2 diabetes mellitus without complications

== ENCOUNTER → 2017-08-13 | Outpatient (REF) | payer MEDICARE, BC | LOC: M LAB REF 15:59 | DX: L08.9 Local infection of the skin and subcutaneous tissue, unspecified (principal) | CPT/HCPCS: 87186 ==

== ENCOUNTER → 2017-09-01 | Outpatient (CLI) | payer MEDICARE | LOC: M WUC 15:56 | DX: R06.02 Shortness of breath (principal); R05 Cough; Z95.0 Presence of cardiac pacemaker | CPT/HCPCS: 71046 ==

== ENCOUNTER → 2017-11-14 | Outpatient (CLI) | payer MEDICARE ==
[2017-11-14 13:05] LABS: ALBUMIN/GLOBULIN RATIO 1.38 (1.00-1.93); ALKALINE PHOSPHATASE 124 U/L (45-117); ALT/SGPT 42 U/L (12-78); ANION GAP 9 MEQ/L (8-16); AST/SGOT 22 U/L (7-37); BILIRUBIN,TOTAL 0.8 MG/DL (0.2-1.0); BLOOD UREA NITROGEN 10 MG/DL (7-18); CALCIUM LEVEL 8.6 MG/DL (8.8-10.2); CARBON DIOXIDE LEVEL 27 MEQ/L (21-32); CHLORIDE LEVEL 106 MEQ/L (98-107); CREATININE FOR GFR 0.91 MG/DL (0.70-1.30); GLOMERULAR FILTRATION RATE > 60.0 (>42); GLUCOSE, FASTING 201 MG/DL (70-100); POTASSIUM SERUM 4.7 MEQ/L (3.5-5.1); SODIUM LEVEL 142 MEQ/L (136-145); TOTAL PROTEIN 6.9 GM/DL (6.4-8.2)
[2017-11-14 13:30] LABS: MAU/CREAT RATIO 123.8 MCG/MG (0.0-30.0)
[2017-11-14 14:00] LABS: ESTIMATED AVERAGE GLUCOSE 166 MG/DL (60-110); HEMOGLOBIN A1c 7.4 %
== END ==
LOC: M WUC 08:42
DX: E11.9 Type 2 diabetes mellitus without complications (principal)
CPT/HCPCS: 80053

== ENCOUNTER → 2018-06-01 | Outpatient (REF) | payer MEDICARE ==
[~2018-06-01] MED LIST changes: +ANORO; +FURO20TA2; +GLIP; +METFORM; +PROAAER10; +VASC1CAP2
[2018-06-01 20:05] LABS: HEMATOCRIT 43.8 % (42.0-52.0); HEMOGLOBIN 15.3 g/dl (13.5-17.5); MEAN CORPUSCULAR HEMOGLOBIN 35.9 pg (27.0-33.0); MEAN CORPUSCULAR HGB CONC 34.9 g/dl (32.0-36.5); MEAN CORPUSCULAR VOLUME 102.8 fl (80.0-96.0); PLATELET COUNT, AUTOMATED 157 10^3/uL (150-450); RED BLOOD COUNT 4.26 10^6/uL (4.30-6.10); WHITE BLOOD COUNT 6.1 10^3/uL (4.0-10.0)
[2018-06-01 20:25] LABS: ALBUMIN 4.6 GM/DL (3.2-5.2); ALT/SGPT 40 U/L (12-78); BILIRUBIN,TOTAL 1.3 MG/DL (0.2-1.0); BLOOD UREA NITROGEN 15 MG/DL (7-18); CALCIUM LEVEL 9.1 MG/DL (8.8-10.2); CARBON DIOXIDE LEVEL 28 MEQ/L (21-32); CHLORIDE LEVEL 101 MEQ/L (98-107); CHOLESTEROL LEVEL 117 MG/DL (<200); CREATININE FOR GFR 1.27 MG/DL (0.70-1.30); GLOMERULAR FILTRATION RATE 58.1 (>35); GLUCOSE, FASTING 197 MG/DL (70-100); HDL CHOLESTEROL 43 MG/DL (>40); MAGNESIUM LEVEL 1.8 MG/DL (1.8-2.4); NON-HDL-C 74 MG/DL; SODIUM LEVEL 139 MEQ/L (136-145); TOTAL PROTEIN 7.6 GM/DL (6.4-8.2); TRIGLYCERIDES LEVEL 429 MG/DL (<150)
[2018-06-01 20:36] LABS: MAU/CREAT RATIO 80.6 MCG/MG (0.0-30.0)
[2018-06-01 21:05] LABS: HEMOGLOBIN A1c 7.4 %
== END ==
LOC: M SFHCPLAZ 15:14
PROVIDERS: ATTEND Internal Medicine
DX: D75.89 Other specified diseases of blood and blood-forming organs (principal); K76.0 Fatty (change of) liver, not elsewhere classified; E11.9 Type 2 diabetes mellitus without complications; E78.5 Hyperlipidemia, unspecified; M25.473 Effusion, unspecified ankle
CPT/HCPCS: 36415; 80053; 80061; 82043; 83036; 83735; 85027; G0463

== ENCOUNTER 2018-06-08 01:22 | Emergency (ER) | payer MEDICARE ==
[~2018-06-08] VITALS: Ht 167.6 cm; Wt 88.6 kg
[~2018-06-08 01:22] MED LIST changes: -ANORO; -FURO20TA2; -GLIP; -METFORM; -PROAAER10; -VASC1CAP2
[2018-06-08 01:23] VITALS: BP 168/73
[2018-06-08] MEDS ORDERED: VASC1CAP2 (01:36)
[2018-06-08] MEDS ORDERED: GLIP (01:36)
[2018-06-08] MEDS ORDERED: METFORM (01:36)
[2018-06-08] MEDS ORDERED: PROAAER10 (01:36)
[2018-06-08] MEDS ORDERED: FURO20TA2 (01:36)
[2018-06-08] MEDS ORDERED: ANORO (01:36)
== END 2018-06-08 02:20 | disposition home or self-care (01) ==
LOC: M ED 01:22
DX: R22.0 Localized swelling, mass and lump, head (principal); Z53.20 Procedure and treatment not carried out because of patient's decision for unspecified reasons

== ENCOUNTER 2018-09-02 11:45 | Day surgery (SDC) | payer MEDICARE ==
[~2018-09-02] VITALS: Ht 167.6 cm; Wt 87.5 kg
[2018-09-02] MEDS: NS 1,000 ML IV ONE (06:00)
[~2018-09-02 11:45] MED LIST changes: -ACET50TA PO; +ANORO; +DUTA1CAP10 PO; +FURO20TA2; +GLIP; +MAPA500T17 PO; +METFORM; +PRESCAP PO; +PROAAER10; +VASC1CAP2; +XIID5DRO OP
[2018-09-02] MEDS ORDERED: PROPOFOL 200 MG/20 ML VIAL As Ordered ONE (12:43)
[2018-09-02] MEDS ORDERED: LIDOCAINE 2% INJ 100 MG/5 ML SDV (FOR ANES.) As Ordered ONE (12:46)
--- NOTE | 2018-09-02 13:21 | ROOR ---
Patient Name: Yazan Ramirez Procedure Date: 09/02/2018 1:02 PM Date of : 1940 Age: 78 Room: [facility] Gender: Male Note Status: Finalized Procedure: Total Colonoscopy to Cecum Indications: Positive Cologuard test Providers: Corwin Mares MD Referring MD: Joshua Street MD Requesting Provider: Medicines: Monitored Anesthesia Care Complications: No immediate complications. Procedure: Pre-Anesthesia Assessment: - The heart rate, respiratory rate, oxygen saturations, blood pressure, adequacy of pulmonary ventilation, and response to care were monitored throughout the procedure. The Colonoscope was introduced through the anus and advanced to the cecum, identified by appendiceal orifice and ileocecal valve. The colonoscopy was performed without difficulty. The patient tolerated the procedure well. The quality of the bowel preparation was excellent. Findings: The perianal and digital rectal examinations were normal. Non-bleeding internal hemorrhoids were found during retroflexion. The hemorrhoids were small and Grade I (internal hemorrhoids that do not prolapse). Multiple small and large-mouthed diverticula were found in the entire colon. The exam was otherwise without abnormality on direct and retroflexion views. Impression: - Non-bleeding internal hemorrhoids. - Diverticulosis in the entire examined colon. - The examination was otherwise normal on direct and retroflexion views. - No specimens collected. - The exam was otherwise normal to the cecum. Recommendation: - Patient has a contact number available for emergencies. The signs and symptoms of potential delayed complications were discussed with the patient. Return to normal activities tomorrow. Written discharge instructions were provided to the patient. - High fiber diet. - Discharge patient to home. - Continue present medications. - Repeat colonoscopy for symptoms only. - Return to referring physician. - The findings and recommendations were discussed with the patient's family. Corwin Mares MD Corwin Mares MD 09/02/2018 1:20:23 PM Electronically signed by Corwin Mares MD Number of Addenda: 0 Note Initiated On: 09/02/2018 1:02 PM Estimated Blood Loss: Estimated blood loss: none.
[2018-09-02 13:40] VITALS: BP 186/80
== END 2018-09-02 13:57 | disposition home or self-care (01) ==
LOC: M OPP 11:45
PROVIDERS: ATTEND Internal Medicine Gastroenterology
DX: K64.0 First degree hemorrhoids (principal); K57.30 Diverticulosis of large intestine without perforation or abscess without bleeding; R19.5 Other fecal abnormalities

== ENCOUNTER → 2018-11-21 | Outpatient (CLI) | payer MEDICARE ==
[2018-11-21 14:55] LABS: HEMATOCRIT 41.5 % (42.0-52.0); HEMOGLOBIN 14.3 g/dl (13.5-17.5); MEAN CORPUSCULAR HEMOGLOBIN 35.7 pg (27.0-33.0); MEAN CORPUSCULAR HGB CONC 34.5 g/dl (32.0-36.5); MEAN CORPUSCULAR VOLUME 103.5 fl (80.0-96.0); PLATELET COUNT, AUTOMATED 145 10^3/uL (150-450); RED BLOOD COUNT 4.01 10^6/uL (4.30-6.10); WHITE BLOOD COUNT 5.3 10^3/uL (4.0-10.0)
[2018-11-21 15:18] LABS: ALT/SGPT 35 U/L (12-78); BLOOD UREA NITROGEN 15 MG/DL (7-18); CALCIUM LEVEL 9.2 MG/DL (8.8-10.2); CARBON DIOXIDE LEVEL 27 MEQ/L (21-32); CHLORIDE LEVEL 103 MEQ/L (98-107); CHOLESTEROL LEVEL 91 MG/DL (<200); CHOLESTEROL RISK RATIO 2.275 (<5); CREATININE FOR GFR 1.01 MG/DL (0.70-1.30); GLOMERULAR FILTRATION RATE > 60.0 (>35); GLUCOSE, FASTING 178 MG/DL (70-100); HDL CHOLESTEROL 40 MG/DL (>40); LDL CHOLESTEROL 29 MG/DL (<100); NON-HDL-C 51 MG/DL; POTASSIUM SERUM 4.4 MEQ/L (3.5-5.1); SODIUM LEVEL 140 MEQ/L (136-145); TOTAL PROTEIN 7.2 GM/DL (6.4-8.2); TRIGLYCERIDES LEVEL 112 MG/DL (<150)
[2018-11-21 15:33] LABS: MALB URINE SIEMENS 82.4 MG/L; MAU/CREAT RATIO 74.9 MCG/MG (0.0-30.0)
[2018-11-21 15:42] LABS: HEMOGLOBIN A1c 6.6 %
== END ==
LOC: M WUC 09:14
PROVIDERS: ATTEND Internal Medicine
DX: D75.89 Other specified diseases of blood and blood-forming organs (principal); E11.9 Type 2 diabetes mellitus without complications; E78.5 Hyperlipidemia, unspecified

== ENCOUNTER → 2019-04-06 | Outpatient (CLI) | payer MEDICARE ==
--- NOTE | 2019-04-06 19:08 | REP ---
Supine abdomen, single AP view: There are no comparisons. The bowel gas pattern is normal. There are no calcifications projected over the kidneys, however the kidneys are obscured by superimposed bowel gas. There are calcifications inferiorly in the pelvis on the left, likely phleboliths. There is lumbar scoliosis convex right and there is multilevel lumbar degenerative disc disease. Impression: The kidneys are obscured by bowel gas, however no gross evidence of renal calculi is identified. No calcifications along the courses of the right or left ureters. Normal bowel gas pattern. Degenerative disc disease and scoliosis in the lumbar spine. Electronically Signed by Nazario Smith MD 04/06/2019 07:00 P
== END ==
LOC: M WUC 16:47
PROVIDERS: ATTEND Nurse Practitioner Adult Health
DX: M51.36 Other intervertebral disc degeneration, lumbar region (principal); R10.9 Unspecified abdominal pain

== ENCOUNTER → 2019-05-19 | Outpatient (REF) | payer MEDICARE ==
[2019-05-19 17:31] LABS: ALBUMIN 4.3 GM/DL (3.2-5.2); ALT/SGPT 33 U/L (12-78); BILIRUBIN,TOTAL 1.1 MG/DL (0.2-1.0); BLOOD UREA NITROGEN 19 MG/DL (7-18); CALCIUM LEVEL 9.3 MG/DL (8.8-10.2); CARBON DIOXIDE LEVEL 26 MEQ/L (21-32); CHLORIDE LEVEL 103 MEQ/L (98-107); CHOLESTEROL LEVEL 110 MG/DL (<200); CREATININE FOR GFR 1.18 MG/DL (0.70-1.30); GLOMERULAR FILTRATION RATE > 60.0 (>35); GLUCOSE, FASTING 140 MG/DL (70-100); HDL CHOLESTEROL 39 MG/DL (>40); LDL CHOLESTEROL 21 MG/DL (<100); MAGNESIUM LEVEL 1.6 MG/DL (1.8-2.4); NON-HDL-C 71 MG/DL; POTASSIUM SERUM 4.4 MEQ/L (3.5-5.1); SODIUM LEVEL 140 MEQ/L (136-145); TOTAL PROTEIN 7.4 GM/DL (6.4-8.2); TRIGLYCERIDES LEVEL 250 MG/DL (<150)
[2019-05-19 17:35] LABS: VITAMIN B12 LEVEL 252 PG/ML
[2019-05-19 17:36] LABS: FOLATE 19.4 NG/ML
[2019-05-19 17:42] LABS: HEMOGLOBIN A1c 6.7 %
[2019-05-19 17:56] LABS: MAU/CREAT RATIO 46.7 MCG/MG (0.0-30.0)
== END ==
LOC: M SFHCPLAZ 14:54
PROVIDERS: ATTEND Internal Medicine
DX: K76.0 Fatty (change of) liver, not elsewhere classified (principal); E11.9 Type 2 diabetes mellitus without complications; E78.5 Hyperlipidemia, unspecified; M25.473 Effusion, unspecified ankle; D75.89 Other specified diseases of blood and blood-forming organs
CPT/HCPCS: 36415; 80053; 80061; 82043; 82607; 82746; 83036; 83735; G0463

== ENCOUNTER → 2019-06-24 | Outpatient (CLI) | payer MEDICARE ==
--- NOTE | 2019-06-24 15:34 | REP ---
PA and lateral chest: Comparison is 09/01/2017. The lung armstrong are clear. The cardiac size is normal. The kate, mediastinum, and skeletal structures are unremarkable. There is a dual-chamber pacemaker, unchanged. Impression: Negative PA and lateral chest. There is no interval change. Electronically Signed by Nazario Smith MD 06/24/2019 03:26 P
== END ==
LOC: M WUC 14:38
PROVIDERS: ATTEND Physician Assistant
DX: R05 Cough (principal); R06.02 Shortness of breath; Z95.0 Presence of cardiac pacemaker

== ENCOUNTER → 2019-08-11 | Outpatient (CLI) | payer MEDICARE ==
--- NOTE | 2019-08-11 16:37 | REP ---
Left rib series: Seven views. History: Left rib pain. Comparison study: June 24, 2019. Findings: A bipolar pacemaker is again seen in the right heart via the left side. There is a granulomatous calcification in the right lung. PA chest x-ray shows no evidence of pneumothorax or hydrothorax. Lung armstrong are otherwise clear. Pleural angles are sharp. Mediastinum is not widened. Multiple left-sided rib views demonstrate no visible rib fracture or bony destructive lesion. Impression: Negative radiographs of the left ribcage. Pacemaker in place. No acute disease. Electronically Signed by aMnnie Carvalho MD 08/11/2019 04:29 P
== END ==
LOC: M WUC 15:06
PROVIDERS: ATTEND Internal Medicine
DX: R07.81 Pleurodynia (principal); Z95.0 Presence of cardiac pacemaker

== ENCOUNTER → 2019-11-03 | Outpatient (CLI) | payer MEDICARE ==
--- NOTE | 2019-11-03 11:27 | REP ---
LUMBOSACRAL SPINE, AP AND LATERAL: Three AP and lateral view of the lumbosacral spine are performed and compared to a prior study of 12/24/2011. No compression fracture is seen. There is normal lumbar lordosis. Large anterior spurs are present with bridging osteophytes at all levels anteriorly. These findings are slightly progressed when compared to the prior study. There is mild disc space narrowing and subchondral sclerosis at L1-2. There is moderate narrowing and subchondral sclerosis at L3-4, L4-5, and L5-S1. There is sclerosis and spurring at the posterior facet joints. There are large bridging osteophytes on the right at virtually all levels. There is mild curvature toward the right. The posterior elements are intact. IMPRESSION: No compression fracture. Diffuse degenerative changes as discussed in detail above have mildly progressed since the prior study of 12/24/2011. Electronically Signed by Nazario Meade MD 11/03/2019 12:57 P
--- NOTE | 2019-11-03 11:28 | REP ---
RIGHT HIP, TWO VIEWS: Two views of the right hip performed. There is no acute fracture or dislocation. Mild tendinous calcification is seen along the greater trochanter. There is mild joint space narrowing, subchondral sclerosis and spurring at the hip joint. IMPRESSION: Mild degenerative changes. Electronically Signed by Nazario eMade MD 11/03/2019 12:57 P
== END ==
LOC: M WUC 08:52
PROVIDERS: ATTEND Nurse Practitioner Family
DX: M16.11 Unilateral primary osteoarthritis, right hip (principal); M79.651 Pain in right thigh

== ENCOUNTER → 2019-11-25 | Outpatient (CLI) | payer MEDICARE ==
[2019-11-25 13:19] LABS: HEMATOCRIT 41.6 % (42.0-52.0); HEMOGLOBIN 14.4 g/dl (13.5-17.5); MEAN CORPUSCULAR HEMOGLOBIN 35.1 pg (27.0-33.0); MEAN CORPUSCULAR HGB CONC 34.6 g/dl (32.0-36.5); MEAN CORPUSCULAR VOLUME 101.5 fl (80.0-96.0); PLATELET COUNT, AUTOMATED 144 10^3/uL (150-450); WHITE BLOOD COUNT 5.3 10^3/uL (4.0-10.0)
[2019-11-25 13:29] LABS: ALBUMIN 4.1 GM/DL (3.2-5.2); ALT/SGPT 27 U/L (12-78); BILIRUBIN,TOTAL 1.2 MG/DL (0.2-1.0); BLOOD UREA NITROGEN 20 MG/DL (7-18); CALCIUM LEVEL 9.1 MG/DL (8.8-10.2); CARBON DIOXIDE LEVEL 30 MEQ/L (21-32); CHLORIDE LEVEL 104 MEQ/L (98-107); CHOLESTEROL LEVEL 123 MG/DL (<200); CREATININE FOR GFR 1.08 MG/DL (0.70-1.30); GLOMERULAR FILTRATION RATE > 60.0 (>35); GLUCOSE, FASTING 184 MG/DL (70-100); HDL CHOLESTEROL 41 MG/DL (>40); LDL CHOLESTEROL 39 MG/DL (<100); MAGNESIUM LEVEL 1.5 MG/DL (1.8-2.4); NON-HDL-C 82 MG/DL; POTASSIUM SERUM 4.7 MEQ/L (3.5-5.1); SODIUM LEVEL 139 MEQ/L (136-145); TOTAL PROTEIN 7.5 GM/DL (6.4-8.2); TRIGLYCERIDES LEVEL 213 MG/DL (<150)
[2019-11-25 13:36] LABS: VITAMIN B12 LEVEL 1608 PG/ML (247-911)
[2019-11-25 13:54] LABS: HEMOGLOBIN A1c 7.2 %
[2019-11-25 13:56] LABS: MAU/CREAT RATIO 51.4 MCG/MG (0.0-30.0)
[2019-11-26 19:09] LABS: Lyme Disease IgG/IgM Antibodie <0.91 ISR (0.00-0.90); Lyme Disease IgM Ab Quantitati <0.80 index (0.00-0.79)
== END ==
LOC: M WUC 09:32
PROVIDERS: ATTEND Internal Medicine
DX: E11.9 Type 2 diabetes mellitus without complications (principal); E78.5 Hyperlipidemia, unspecified; D75.89 Other specified diseases of blood and blood-forming organs; Z95.0 Presence of cardiac pacemaker

== ENCOUNTER → 2020-05-18 | Outpatient (CLI) | payer MEDICARE ==
[2020-05-18 14:02] LABS: ALBUMIN 4.3 GM/DL (3.2-5.2); ALT/SGPT 36 U/L (12-78); BLOOD UREA NITROGEN 15 MG/DL (7-18); CALCIUM LEVEL 9.6 MG/DL (8.8-10.2); CARBON DIOXIDE LEVEL 28 MEQ/L (21-32); CHLORIDE LEVEL 105 MEQ/L (98-107); CHOLESTEROL LEVEL 124 MG/DL (<200); CHOLESTEROL RISK RATIO 2.755 (<5); CREATININE FOR GFR 1.01 MG/DL (0.70-1.30); GLOMERULAR FILTRATION RATE > 60.0 (>35); GLUCOSE, FASTING 193 MG/DL (70-100); HDL CHOLESTEROL 45 MG/DL (>40); LDL CHOLESTEROL 35 MG/DL (<100); NON-HDL-C 79 MG/DL; POTASSIUM SERUM 4.4 MEQ/L (3.5-5.1); SODIUM LEVEL 138 MEQ/L (136-145); TOTAL PROTEIN 7.2 GM/DL (6.4-8.2); TRIGLYCERIDES LEVEL 220 MG/DL (<150)
[2020-05-18 15:20] LABS: HEMOGLOBIN A1c 6.8 %
== END ==
LOC: M WUC 10:36
PROVIDERS: ATTEND Internal Medicine
DX: E78.5 Hyperlipidemia, unspecified (principal); E11.9 Type 2 diabetes mellitus without complications

== ENCOUNTER → 2020-11-28 | Outpatient (REF) | payer MEDICARE ==
[2020-11-28 13:49] LABS: BASO % 0.5 % (0.0-1.0); EOS # 0.1 10^3/uL (0.0-0.5); EOS % 2.2 % (0.0-3.0); HEMATOCRIT 41.5 % (42.0-52.0); HEMOGLOBIN 14.4 g/dl (13.5-17.5); LYMPH # 1.3 10^3/uL (1.5-5.0); MEAN CORPUSCULAR HEMOGLOBIN 34.6 pg (27.0-33.0); MEAN CORPUSCULAR HGB CONC 34.7 g/dl (32.0-36.5); MEAN CORPUSCULAR VOLUME 99.8 fl (80.0-96.0); MONO # 0.6 10^3/uL (0.0-0.8); MONO % 10.2 % (2.0-8.0); NEUTROPHILS # 3.5 10^3/uL (1.5-8.5); NEUTROPHILS % 62.7 % (36.0-66.0); PLATELET COUNT, AUTOMATED 136 10^3/uL (150-450); RED BLOOD COUNT 4.16 10^6/uL (4.30-6.10); WHITE BLOOD COUNT 5.5 10^3/uL (4.0-10.0)
[2020-11-28 14:06] LABS: HEMOGLOBIN A1c 7.1 %
[2020-11-28 14:11] LABS: ALBUMIN 4.1 GM/DL (3.2-5.2); ALT/SGPT 40 U/L (12-78); BILIRUBIN,TOTAL 1.7 MG/DL (0.2-1.0); BLOOD UREA NITROGEN 12 MG/DL (7-18); CALCIUM LEVEL 9.5 MG/DL (8.8-10.2); CARBON DIOXIDE LEVEL 28 MEQ/L (21-32); CHLORIDE LEVEL 104 MEQ/L (98-107); CHOLESTEROL LEVEL 126 MG/DL (<200); CHOLESTEROL RISK RATIO 2.863 (<5); CREATININE FOR GFR 0.92 MG/DL (0.70-1.30); GLOMERULAR FILTRATION RATE > 60.0 (>35); GLUCOSE, FASTING 214 MG/DL (70-100); HDL CHOLESTEROL 44 MG/DL (>40); LDL CHOLESTEROL 42 MG/DL (<100); NON-HDL-C 82 MG/DL; POTASSIUM SERUM 4.7 MEQ/L (3.5-5.1); SODIUM LEVEL 140 MEQ/L (136-145); TOTAL PROTEIN 7.1 GM/DL (6.4-8.2); TRIGLYCERIDES LEVEL 200 MG/DL (<150)
[2020-11-28 14:16] LABS: MAU/CREAT RATIO 134.2 MCG/MG (0.0-30.0)
== END ==
LOC: M SFHCPLAZ 11:04
PROVIDERS: ATTEND Internal Medicine
DX: E78.5 Hyperlipidemia, unspecified (principal); E11.9 Type 2 diabetes mellitus without complications; Z86.010 Personal history of colon polyps
CPT/HCPCS: 36415; 80053; 80061; 82043; 83036; 85025; 90471; 90715; G0463

== ENCOUNTER → 2020-11-28 | Outpatient (CLI) | payer MEDICARE | LOC: M PLALAB 11:30 | PROVIDERS: ATTEND Internal Medicine | DX: E78.5 Hyperlipidemia, unspecified (principal); E11.9 Type 2 diabetes mellitus without complications; Z86.010 Personal history of colon polyps ==

== ENCOUNTER → 2021-01-13 | Outpatient (CLI) | payer MEDICARE | LOC: M LABSMTC 09:39 | PROVIDERS: ATTEND Anesthesiology | DX: Z01.812 Encounter for preprocedural laboratory examination (principal); Z20.822 Contact with and (suspected) exposure to COVID-19 ==

== ENCOUNTER 2021-01-18 13:35 | Day surgery (SDC) | payer MEDICARE ==
[~2021-01-18] VITALS: Ht 167.6 cm; Wt 87.3 kg
[~2021-01-18 13:35] MED LIST changes: +ANOR1AER INH; +B-122500 PO; +FINA5TAB2 PO; -FURO20TA2; +FURO20TA2 PO; +GLIP5TAB PO; +LR 1,000 ML IV ONE; +MAGN250T7 PO; +NOXI1TAB PO; -PROAAER10; +PROAAER10 INH; +XALA0.007 OU
[2021-01-18] MEDS ORDERED: ceFAZolin SOD 2 GM in IV 1 EA IV ONE (13:40)
[2021-01-18 14:36] LABS: INR 0.94
[2021-01-18 14:37] LABS: PARTIAL THROMBOPLASTIN TIME 24.6 SECONDS (25.9-37.0)
[2021-01-18] MEDS ORDERED: LIDOCAINE 1% MDV 20ML VIAL As Ordered ONE (15:53)
[2021-01-18] MEDS ORDERED: BACITRACIN OINTMENT 30GM TUBE As Ordered ONE (15:53)
[2021-01-18] MEDS ORDERED: propofoL 500 MG/50 ML VIAL As Ordered ONE (15:58)
[2021-01-18] MEDS ORDERED: LIDOCAINE 2% 100MG/5ML SDV (FOR ANES.) As Ordered ONE (15:58)
[2021-01-18] MEDS ORDERED: fentaNYL 100 MCG/2 ML INJECTION (J3010) As Ordered ONE (15:59)
[2021-01-18] MEDS ORDERED: MIDAZOLAM INJ 2MG/2ML VIAL (J2250 PER 1MG) As Ordered ONE (15:59)
[2021-01-18 18:30] VITALS: BP 162/72
--- NOTE | 2021-01-18 20:14 | RO ---
OPERATIVE NOTE DATE OF OPERATION: 01/18/2021 PREOPERATIVE DIAGNOSIS: Pacemaker battery depletion of dual-chamber pacemaker. POSTOPERATIVE DIAGNOSES: 1. Pacemaker battery depletion of dual-chamber pacemaker pulse generator. 2. Outer insulation break of the preexisting ventricle pacemaker lead. FINDINGS: 1. Pacemaker pulse generator battery depletion. 2. Insulation break of the outer insulation of the ventricle pacemaker lead. PROCEDURE PERFORMED: 1. Ex-plantation of old dual-chamber pacemaker pulse generator and implantation of new dual-chamber pacemaker pulse generator. 2. Application of silicone glue over the insulation break in the ventricle pacemaker lead. SURGEON: Jonathan Cordoba M.D. BIOPHARMACEUTICAL REP: None. ANESTHESIA: Lidocaine 1% local/monitored anesthetic care. SPECIMENS: Old dual chamber pacemaker pulse generator. ESTIMATED BLOOD LOSS: Less than 5 mL. BLOOD PRODUCTS: No blood products were placed. DRAINS: No drains. COMPLICATIONS: None. PROCEDURE DESCRIPTION: The patient was prepped and draped over the left anterior chest and 3M Ioban film was applied. Lidocaine 1% was used for local anesthetic. An incision was made over the previous pacemaker incision scar with a PEAK PlasmaBlade. The PEAK PlasmaBlade was used to dissect down to the anterior capsule and over the top of the pacemaker pulse generator. The tie-down suture holding the pacemaker pulse chamber was cut with a 15-blade. The pacemaker pulse generator was then removed from the pacemaker pocket. I had to free up 2 cm of the existing leads to allow enough lead to hold on to, to be able to do the pacemaker pulse generator changeover. Upon inspection of the existing pacemaker leads, I noticed that there was a close to full circumferential jagged break of the outer insulation involving the ventricle pacemaker lead. The existing right atrial and right ventricle terminal pins were removed from the existing pacemaker pulse generator header and tested. It was very difficult to unscrew the set screw of the atrial pin and this required further work by using a snap to pull out the silicone plug to get better direct access to the set screw with the hex screwdriver. I was eventually successful loosening the atrial set screw. The ventricle lead was tested with test cables and then tested again several times after transfer to the new pacemaker pulse generator. The atrial lead was tested within the new pacemaker pulse generator. As noted, silicone glue was applied to the break in the insulation of the ventricle lead. I took a medium sized [employer] TYRX antimicrobial envelope, medium sized, and cut it into four pieces, and placed it into the existing pacemaker pocket. I then placed the new pacemaker pulse generator into the existing pacemaker pocket. The deep layer was closed using individual sutures consisting of 2-0 Vicryl and the more superficial layer was closed using individual sutures consisting of 3-0 Vicryl. The skin was then closed using tio. The patient tolerated the procedure well without any immediate complications. It was decided in the operating room to keep sensing in the ventricle lead bipolar and to switch to unipolar for pacing of the ventricle lead. The existing pacemaker pulse generator that was explanted was a [employer] DR RF, model 2210 with serial number [id number]. It was originally implanted 09/18/2010. The new pacemaker pulse generator implanted was a [employer] MRI, model TU4587 with serial number [id number]. The existing right atrial lead was a [employer] model 2088 with serial number [id number] originally implanted 09/18/2010. Device base testing in the operating room for the right atrial lead showed capture threshold of 1.25 volts at 0.4 milliseconds with P wave amplitude of 2.7 millivolts and lead impedance of 450 ohms. The existing right ventricle lead was a [employer] model 2088 with serial number [id number] originally implanted 09/18/2010. Final testing in the operating room through the data programmer for the ventricle lead showed capture threshold of 1.12 millivolts at 0.4 milliseconds with R-wave amplitude of 6.1 millivolts and lead impedance of 380 ohms. When the patient was taken over to the advanced recovery room, I did have a conversation with him explaining that I did discover an outer insulation break of the ventricle lead and that I was able to place silicone glue on it. I explained to him that everything was working satisfactory.
== END 2021-01-18 18:35 | disposition home or self-care (01) ==
LOC: M SDC 13:35
PROVIDERS: ATTEND Internal Medicine Cardiovascular Disease
DX: Z45.010 Encounter for checking and testing of cardiac pacemaker pulse generator [battery] (principal); T82.190A Other mechanical complication of cardiac electrode, initial encounter; Y71.2 Prosthetic and other implants, materials and accessory cardiovascular devices associated with adverse incidents; E78.00 Pure hypercholesterolemia, unspecified; E11.9 Type 2 diabetes mellitus without complications; I25.10 Atherosclerotic heart disease of native coronary artery without angina pectoris; J44.9 Chronic obstructive pulmonary disease, unspecified; H40.9 Unspecified glaucoma; R56.9 Unspecified convulsions; Z87.891 Personal history of nicotine dependence; R39.198 Other difficulties with micturition; Z79.899 Other long term (current) drug therapy; Z79.51 Long term (current) use of inhaled steroids; Z88.8 Allergy status to other drugs, medicaments and biological substances
CPT/HCPCS: 33220; 33228; 36415; 85610; 85730; C1785; J0690; J2250; J3010

== ENCOUNTER → 2021-05-22 | Outpatient (CLI) | payer MEDICARE ==
[~2021-05-22] MED LIST changes: -LR 1,000 ML IV ONE
[2021-05-22 12:07] LABS: ALT/SGPT 34 U/L (12-78); BLOOD UREA NITROGEN 16 MG/DL (7-18); CALCIUM LEVEL 9.3 MG/DL (8.8-10.2); CARBON DIOXIDE LEVEL 31 MEQ/L (21-32); CHLORIDE LEVEL 102 MEQ/L (98-107); CHOLESTEROL LEVEL 116 MG/DL (<200); CHOLESTEROL RISK RATIO 2.636 (<5); CREATININE FOR GFR 1.02 MG/DL (0.70-1.30); GLOMERULAR FILTRATION RATE > 60.0 (>35); GLUCOSE, FASTING 225 MG/DL (70-100); HDL CHOLESTEROL 44 MG/DL (>40); LDL CHOLESTEROL 34 MG/DL (<100); MAGNESIUM LEVEL 1.5 MG/DL (1.8-2.4); NON-HDL-C 72 MG/DL; SODIUM LEVEL 138 MEQ/L (136-145); TOTAL PROTEIN 6.9 GM/DL (6.4-8.2); TRIGLYCERIDES LEVEL 189 MG/DL (<150)
[2021-05-22 12:10] LABS: HEMOGLOBIN A1c 7.1 %
== END ==
LOC: M WUC 08:46
PROVIDERS: ATTEND Internal Medicine
DX: E11.9 Type 2 diabetes mellitus without complications (principal); E78.5 Hyperlipidemia, unspecified

== ENCOUNTER → 2021-06-27 | Outpatient (CLI) | payer MEDICARE | LOC: M RAD 07:36 | PROVIDERS: ATTEND Internal Medicine | DX: R10.11 Right upper quadrant pain (principal) ==

== ENCOUNTER → 2021-07-06 | Outpatient (CLI) | payer MEDICARE ==
[~2021-07-06] MED LIST changes: +GASTROGRAFIN SOLUTION 30ML (Q9963) As Ordered ONE; +ISOVUE-370 76% 100ML VIAL As Ordered ONE
== END ==
LOC: M RAD 15:03
PROVIDERS: ATTEND Internal Medicine
DX: R10.9 Unspecified abdominal pain (principal); M51.34 Other intervertebral disc degeneration, thoracic region
CPT/HCPCS: 74160; Q9963; Q9967

== ENCOUNTER → 2021-07-31 | Outpatient (CLI) | payer MEDICARE ==
[~2021-07-31] MED LIST changes: +E-Z-GAS II EFFERVESCENT PACKET (SODIUM BICARB./CITRIC ACID/SIMETHICONE) As Ordered ONE; +E-Z-HD 98% w/w 340GM SUSP BTL As Ordered ONE; +E-Z-PAQUE 96% w/w SUSP 176GM BTL As Ordered ONE; -GASTROGRAFIN SOLUTION 30ML (Q9963) As Ordered ONE; -ISOVUE-370 76% 100ML VIAL As Ordered ONE
== END ==
LOC: M RAD 08:35
PROVIDERS: ATTEND Surgery
DX: R10.11 Right upper quadrant pain (principal)

== ENCOUNTER → 2021-12-04 | Outpatient (CLI) | payer MEDICARE ==
[~2021-12-04] MED LIST changes: -E-Z-GAS II EFFERVESCENT PACKET (SODIUM BICARB./CITRIC ACID/SIMETHICONE) As Ordered ONE; -E-Z-HD 98% w/w 340GM SUSP BTL As Ordered ONE; -E-Z-PAQUE 96% w/w SUSP 176GM BTL As Ordered ONE
[2021-12-04 10:21] LABS: BASO % 0.4 % (0.0-1.0); EOS # 0.2 10^3/uL (0.0-0.5); EOS % 3.3 % (0.0-3.0); HEMATOCRIT 44.9 % (42.0-52.0); HEMOGLOBIN 15.7 g/dl (13.5-17.5); LYMPH % 40.7 % (24.0-44.0); MEAN CORPUSCULAR HEMOGLOBIN 35.8 pg (27.0-33.0); MEAN CORPUSCULAR VOLUME 102.3 fl (80.0-96.0); MONO # 0.5 10^3/uL (0.0-0.8); MONO % 9.4 % (2.0-8.0); NEUTROPHILS # 2.2 10^3/uL (1.5-8.5); NEUTROPHILS % 45.8 % (36.0-66.0); PLATELET COUNT, AUTOMATED 124 10^3/uL (150-450); RED BLOOD COUNT 4.39 10^6/uL (4.30-6.10); WHITE BLOOD COUNT 4.9 10^3/uL (4.0-10.0)
[2021-12-04 10:32] LABS: HEMOGLOBIN A1c 6.7 %
[2021-12-04 10:48] LABS: ALBUMIN 4.1 GM/DL (3.2-5.2); ALT/SGPT 22 U/L (12-78); BILIRUBIN,TOTAL 1.2 MG/DL (0.2-1.0); BLOOD UREA NITROGEN 11 MG/DL (7-18); CARBON DIOXIDE LEVEL 30 MEQ/L (21-32); CHLORIDE LEVEL 105 MEQ/L (98-107); CHOLESTEROL LEVEL 123 MG/DL (<200); CHOLESTEROL RISK RATIO 2.733 (<5); CREATININE FOR GFR 0.97 MG/DL (0.70-1.30); GLOMERULAR FILTRATION RATE > 60.0 (>35); GLUCOSE, FASTING 181 MG/DL (70-100); HDL CHOLESTEROL 45 MG/DL (>40); LDL CHOLESTEROL 36 MG/DL (<100); MAGNESIUM LEVEL 1.8 MG/DL (1.8-2.4); NON-HDL-C 78 MG/DL; POTASSIUM SERUM 4.6 MEQ/L (3.5-5.1); SODIUM LEVEL 142 MEQ/L (136-145); TOTAL PROTEIN 7.5 GM/DL (6.4-8.2); TRIGLYCERIDES LEVEL 209 MG/DL (<150)
[2021-12-04 12:40] LABS: MALB URINE SIEMENS 93.1 MG/L
== END ==
LOC: M WUC 08:16
PROVIDERS: ATTEND Internal Medicine
DX: E11.9 Type 2 diabetes mellitus without complications (principal); D75.89 Other specified diseases of blood and blood-forming organs; E78.5 Hyperlipidemia, unspecified; Z95.0 Presence of cardiac pacemaker

== ENCOUNTER → 2021-12-13 | Outpatient (CLI) | payer MEDICARE ==
[~2021-12-13] MED LIST changes: +ISOVUE-370 76% 100ML VIAL As Ordered ONE
== END ==
LOC: M RAD 08:49
PROVIDERS: ATTEND Internal Medicine
DX: J38.7 Other diseases of larynx (principal)
CPT/HCPCS: 70491; Q9967

== ENCOUNTER → 2022-04-01 | Outpatient (CLI) | payer MEDICARE ==
[~2022-04-01] MED LIST changes: -ISOVUE-370 76% 100ML VIAL As Ordered ONE
== END ==
LOC: M PLAIMG 12:44
PROVIDERS: ATTEND Physician Assistant
DX: Q76.49 Other congenital malformations of spine, not associated with scoliosis (principal); M45.2 Ankylosing spondylitis of cervical region

== ENCOUNTER → 2022-04-15 | Outpatient (CLI) | payer MEDICARE ==
[2022-04-15 17:53] LABS: BASO % 0.9 % (0.0-1.0); EOS # 0.2 10^3/uL (0.0-0.5); EOS % 3.9 % (0.0-3.0); HEMATOCRIT 43.5 % (42.0-52.0); HEMOGLOBIN 14.9 g/dl (13.5-17.5); LYMPH # 1.9 10^3/uL (1.5-5.0); LYMPH % 40.1 % (24.0-44.0); MEAN CORPUSCULAR HEMOGLOBIN 35.9 pg (27.0-33.0); MEAN CORPUSCULAR HGB CONC 34.3 g/dl (32.0-36.5); MEAN CORPUSCULAR VOLUME 104.8 fl (80.0-96.0); MONO # 0.4 10^3/uL (0.0-0.8); MONO % 9.2 % (2.0-8.0); NEUTROPHILS # 2.1 10^3/uL (1.5-8.5); NEUTROPHILS % 45.5 % (36.0-66.0); PLATELET COUNT, AUTOMATED 122 10^3/uL (150-450); RED BLOOD COUNT 4.15 10^6/uL (4.30-6.10); WHITE BLOOD COUNT 4.7 10^3/uL (4.0-10.0)
[2022-04-15 18:56] LABS: ALBUMIN 4.2 GM/DL (3.2-5.2); ALT/SGPT 30 U/L (12-78); BILIRUBIN,TOTAL 1.3 MG/DL (0.2-1.0); BLOOD UREA NITROGEN 10 MG/DL (7-18); CALCIUM LEVEL 9.7 MG/DL (8.8-10.2); CARBON DIOXIDE LEVEL 29 MEQ/L (21-32); CHLORIDE LEVEL 103 MEQ/L (98-107); CHOLESTEROL LEVEL 123 MG/DL (<200); CHOLESTEROL RISK RATIO 2.617 (<5); CREATININE FOR GFR 0.97 MG/DL (0.70-1.30); GLOMERULAR FILTRATION RATE > 60.0 (>35); GLUCOSE, FASTING 161 MG/DL (70-100); HDL CHOLESTEROL 47 MG/DL (>40); LDL CHOLESTEROL 33 MG/DL (<100); MAGNESIUM LEVEL 1.4 MG/DL (1.8-2.4); NON-HDL-C 76 MG/DL; POTASSIUM SERUM 4.5 MEQ/L (3.5-5.1); SODIUM LEVEL 139 MEQ/L (136-145); TRIGLYCERIDES LEVEL 214 MG/DL (<150)
[2022-04-15 18:57] LABS: CREATININE, URINE 75.8 MG/DL; MAU/CREAT RATIO 188.6 MCG/MG (0.0-30.0)
[2022-04-15 19:44] LABS: HEMOGLOBIN A1c 6.4 %
== END ==
LOC: M WUC 11:22
PROVIDERS: ATTEND Internal Medicine Hematology
DX: E11.9 Type 2 diabetes mellitus without complications (principal); D75.89 Other specified diseases of blood and blood-forming organs; Z95.0 Presence of cardiac pacemaker

== ENCOUNTER → 2022-05-16 | Outpatient (CLI) | payer MEDICARE ==
[~2022-05-16] MED LIST changes: +E-Z-GAS II EFFERVESCENT PACKET (SODIUM BICARB./CITRIC ACID/SIMETHICONE) As Ordered ONE; +E-Z-HD 98% w/w 340GM SUSP BTL As Ordered ONE; +E-Z-PAQUE 96% w/w SUSP 176GM BTL As Ordered ONE
== END ==
LOC: M RAD 08:13
PROVIDERS: ATTEND Internal Medicine Hematology
DX: R13.13 Dysphagia, pharyngeal phase (principal); M25.78 Osteophyte, vertebrae

== ENCOUNTER → 2022-10-21 | Outpatient (CLI) | payer MEDICARE ==
[~2022-10-21] MED LIST changes: -E-Z-GAS II EFFERVESCENT PACKET (SODIUM BICARB./CITRIC ACID/SIMETHICONE) As Ordered ONE; -E-Z-HD 98% w/w 340GM SUSP BTL As Ordered ONE; -E-Z-PAQUE 96% w/w SUSP 176GM BTL As Ordered ONE; +TIMO0.5S20 OU; -TIMO0.5S29 OU
[2022-10-21 17:07] LABS: C REACTIVE PROTEIN QUANTITATIV < 0.40 MG/DL (<1.0)
[2022-10-21 17:08] LABS: THYROID STIMULATING HORMONE 2.065 uIU/ML (0.55-4.78); TOTAL 25(OH) VITAMIN D 38.8 NG/ML (20.0-100.0)
[2022-10-21 17:09] LABS: ALBUMIN 4.1 G/DL (3.2-5.2); ALKALINE PHOSPHATASE 116 U/L (46-116); ALT/SGPT 23 U/L (7.0-40); AST/SGOT 22 U/L (<34); BILIRUBIN,TOTAL 1.4 MG/DL (0.3-1.2); BLOOD UREA NITROGEN 16 MG/DL (9-23); CALCIUM LEVEL 9.4 MG/DL (8.3-10.6); CARBON DIOXIDE LEVEL 29 MMOL/L (20-31); CHLORIDE LEVEL 104 MMOL/L (98-107); CHOLESTEROL LEVEL 117 MG/DL (<200); CREATININE FOR GFR 0.96 MG/DL (0.70-1.30); GLOMERULAR FILTRATION RATE > 60.0 (>35); GLUCOSE, FASTING 183 MG/DL (74-106); HDL CHOLESTEROL 43.2 MG/DL (>40); LDL CHOLESTEROL 32.4 MG/DL (<100); NON-HDL-C 73.8 MG/DL; POTASSIUM SERUM 4.4 MMOL/L (3.5-5.1); SODIUM LEVEL 138 MMOL/L (136-145); TOTAL PROTEIN 6.8 G/DL (5.7-8.2); TRIGLYCERIDES LEVEL 207 MG/DL (<150)
[2022-10-21 17:10] LABS: HEMATOCRIT 41.6 % (42.0-52.0); MEAN CORPUSCULAR HEMOGLOBIN 35.5 pg (27.0-33.0); MEAN CORPUSCULAR HGB CONC 33.7 g/dl (32.0-36.5); MEAN CORPUSCULAR VOLUME 105.6 fl (80.0-96.0); PLATELET COUNT, AUTOMATED 119 10^3/uL (150-450); RED BLOOD COUNT 3.94 10^6/uL (4.30-6.10); VITAMIN B12 LEVEL 879 PG/ML (211-911); WHITE BLOOD COUNT 4.9 10^3/uL (4.0-10.0)
[2022-10-21 17:16] LABS: CREATININE, URINE 87.5 MG/DL; MAU/CREAT RATIO 66.2 MCG/MG (0.0-30.0)
[2022-10-21 17:42] LABS: HEMOGLOBIN A1c 6.8 % (4.0-6.0)
== END ==
LOC: M WUC 10:35
PROVIDERS: ATTEND Internal Medicine Hematology
DX: E11.9 Type 2 diabetes mellitus without complications (principal)
CPT/HCPCS: 36415; 80053; 80061; 82043; 82306; 82607; 83036; 84439; 84443; 85027; 86140; G0103

== ENCOUNTER → 2023-04-28 | Outpatient (CLI) | payer MEDICARE ==
[2023-04-28 13:40] LABS: HEMATOCRIT 39.2 % (42.0-52.0); HEMOGLOBIN 13.4 g/dl (13.5-17.5); MEAN CORPUSCULAR HEMOGLOBIN 35.7 pg (27.0-33.0); MEAN CORPUSCULAR HGB CONC 34.2 g/dl (32.0-36.5); MEAN CORPUSCULAR VOLUME 104.5 fl (80.0-96.0); PLATELET COUNT, AUTOMATED 132 10^3/uL (150-450); RED BLOOD COUNT 3.75 10^6/uL (4.30-6.10); WHITE BLOOD COUNT 4.6 10^3/uL (4.0-10.0)
[2023-04-28 14:00] LABS: CREATININE, URINE 132.2 MG/DL
[2023-04-28 14:01] LABS: MAU/CREAT RATIO 52.1 MCG/MG (0.0-30.0)
[2023-04-28 14:03] LABS: C REACTIVE PROTEIN QUANTITATIV < 0.40 MG/DL (<1.0); FREE T4 1.09 NG/DL (0.89-1.76); THYROID STIMULATING HORMONE 1.571 uIU/ML (0.55-4.78)
[2023-04-28 14:04] LABS: TOTAL 25(OH) VITAMIN D 43.6 NG/ML (20.0-100.0); VITAMIN B12 LEVEL 1251 PG/ML (211-911)
[2023-04-28 14:05] LABS: ALBUMIN 3.9 G/DL (3.2-5.2); ALKALINE PHOSPHATASE 146 U/L (46-116); ALT/SGPT 22 U/L (7.0-40); AST/SGOT 18 U/L (<34); BLOOD UREA NITROGEN 17 MG/DL (9-23); CALCIUM LEVEL 9.3 MG/DL (8.3-10.6); CARBON DIOXIDE LEVEL 28 MMOL/L (20-31); CHLORIDE LEVEL 105 MMOL/L (98-107); CHOLESTEROL LEVEL 105 MG/DL (<200); CHOLESTEROL RISK RATIO 2.61 (<5); CREATININE FOR GFR 0.93 MG/DL (0.70-1.30); GLOMERULAR FILTRATION RATE > 60.0 (>35); GLUCOSE, FASTING 199 MG/DL (74-106); HDL CHOLESTEROL 40.2 MG/DL (>40); LDL CHOLESTEROL 35.2 MG/DL (<100); NON-HDL-C 64.8 MG/DL; POTASSIUM SERUM 5.2 MMOL/L (3.5-5.1); SODIUM LEVEL 143 MMOL/L (136-145); TOTAL PROTEIN 6.6 G/DL (5.7-8.2); TRIGLYCERIDES LEVEL 148 MG/DL (<150)
== END ==
LOC: M PLALAB 11:07
PROVIDERS: ATTEND Internal Medicine Hematology
DX: E11.9 Type 2 diabetes mellitus without complications (principal); Z79.899 Other long term (current) drug therapy

== ENCOUNTER → 2023-08-28 | Outpatient (CLI) | payer MEDICARE ==
[2023-08-28 13:27] LABS: BASO % 0.6 % (0.0-1.0); EOS # 0.2 10^3/uL (0.0-0.5); HEMATOCRIT 38.3 % (42.0-52.0); HEMOGLOBIN 13.2 g/dl (13.5-17.5); LYMPH # 1.8 10^3/uL (1.5-5.0); LYMPH % 36.3 % (24.0-44.0); MEAN CORPUSCULAR HEMOGLOBIN 35.7 pg (27.0-33.0); MEAN CORPUSCULAR HGB CONC 34.5 g/dl (32.0-36.5); MEAN CORPUSCULAR VOLUME 103.5 fl (80.0-96.0); MONO # 0.4 10^3/uL (0.0-0.8); MONO % 8.1 % (2.0-8.0); NEUTROPHILS # 2.6 10^3/uL (1.5-8.5); NEUTROPHILS % 50.6 % (36.0-66.0); PLATELET COUNT, AUTOMATED 127 10^3/uL (150-450)
[2023-08-28 14:01] LABS: C REACTIVE PROTEIN QUANTITATIV < 0.40 MG/DL (<1.0)
[2023-08-28 14:03] LABS: ALBUMIN 4.3 G/DL (3.2-5.2); ALKALINE PHOSPHATASE 119 U/L (46-116); ALT/SGPT 28 U/L (7.0-40); AST/SGOT 21 U/L (<34); BILIRUBIN,TOTAL 1.1 MG/DL (0.3-1.2); BLOOD UREA NITROGEN 24 MG/DL (9-23); CALCIUM LEVEL 9.7 MG/DL (8.3-10.6); CARBON DIOXIDE LEVEL 29 MMOL/L (20-31); CHLORIDE LEVEL 106 MMOL/L (98-107); CREATININE FOR GFR 1.16 MG/DL (0.70-1.30); GLOMERULAR FILTRATION RATE > 60.0 (>35); GLUCOSE, FASTING 180 MG/DL (74-106); POTASSIUM SERUM 5.4 MMOL/L (3.5-5.1); SODIUM LEVEL 141 MMOL/L (136-145); TOTAL PROTEIN 6.8 G/DL (5.7-8.2)
== END ==
LOC: M PLALAB 10:54
PROVIDERS: ATTEND Internal Medicine Hematology
DX: M54.50 Low back pain, unspecified (principal); Z79.899 Other long term (current) drug therapy

== ENCOUNTER → 2023-08-29 | Outpatient (CLI) | payer MEDICARE | LOC: M RAD 08:58 | PROVIDERS: ATTEND Internal Medicine Hematology | DX: M54.50 Low back pain, unspecified (principal) ==

== ENCOUNTER → 2023-11-18 | Outpatient (CLI) | payer MEDICARE ==
[2023-11-18 17:27] LABS: HEMOGLOBIN A1c 6.3 % (4.0-6.0)
[2023-11-18 17:42] LABS: CREATININE, URINE 85.3 MG/DL; MAU/CREAT RATIO 46.8 MCG/MG (0.0-30.0)
[2023-11-18 17:43] LABS: C REACTIVE PROTEIN QUANTITATIV < 0.40 MG/DL (<1.0)
[2023-11-18 17:45] LABS: ALBUMIN 4.1 G/DL (3.2-5.2); ALKALINE PHOSPHATASE 118 U/L (46-116); ALT/SGPT 21 U/L (7.0-40); AST/SGOT 19 U/L (<34); BILIRUBIN,TOTAL 1.4 MG/DL (0.3-1.2); BLOOD UREA NITROGEN 13 MG/DL (9-23); CALCIUM LEVEL 9.4 MG/DL (8.3-10.6); CARBON DIOXIDE LEVEL 30 MMOL/L (20-31); CHLORIDE LEVEL 105 MMOL/L (98-107); CHOLESTEROL LEVEL 107 MG/DL (<200); CHOLESTEROL RISK RATIO 2.32 (<5); CREATININE FOR GFR 0.93 MG/DL (0.70-1.30); FREE T4 1.19 NG/DL (0.89-1.76); GLOMERULAR FILTRATION RATE > 60.0 (>35); GLUCOSE, FASTING 157 MG/DL (74-106); HDL CHOLESTEROL 46.1 MG/DL (>40); LDL CHOLESTEROL 39.3 MG/DL (<100); NON-HDL-C 60.9 MG/DL; POTASSIUM SERUM 4.5 MMOL/L (3.5-5.1); SODIUM LEVEL 140 MMOL/L (136-145); THYROID STIMULATING HORMONE 2.021 uIU/ML (0.55-4.78); TOTAL 25(OH) VITAMIN D 47.2 NG/ML (20.0-100.0); TOTAL PROTEIN 6.6 G/DL (5.7-8.2); TRIGLYCERIDES LEVEL 108 MG/DL (<150); VITAMIN B12 LEVEL 1331 PG/ML (211-911)
[2023-11-18 17:46] LABS: BASO % 0.6 % (0.0-1.0); EOS # 0.2 10^3/uL (0.0-0.5); EOS % 3.8 % (0.0-3.0); HEMATOCRIT 37.6 % (42.0-52.0); LYMPH # 1.7 10^3/uL (1.5-5.0); LYMPH % 36.2 % (24.0-44.0); MEAN CORPUSCULAR HEMOGLOBIN 35.8 pg (27.0-33.0); MEAN CORPUSCULAR HGB CONC 34.6 g/dl (32.0-36.5); MEAN CORPUSCULAR VOLUME 103.6 fl (80.0-96.0); MONO # 0.4 10^3/uL (0.0-0.8); MONO % 8.3 % (2.0-8.0); NEUTROPHILS # 2.4 10^3/uL (1.5-8.5); NEUTROPHILS % 50.7 % (36.0-66.0); PLATELET COUNT, AUTOMATED 144 10^3/uL (150-450); RED BLOOD COUNT 3.63 10^6/uL (4.30-6.10); WHITE BLOOD COUNT 4.7 10^3/uL (4.0-10.0)
== END ==
LOC: M WUC 11:29
PROVIDERS: ATTEND Internal Medicine Hematology
DX: E11.9 Type 2 diabetes mellitus without complications (principal); Z79.899 Other long term (current) drug therapy

== ENCOUNTER → 2024-03-24 | Outpatient (CLI) | payer MEDICARE | LOC: M PLAIMG 13:32 | PROVIDERS: ATTEND Internal Medicine Cardiovascular Disease | DX: I35.0 Nonrheumatic aortic (valve) stenosis (principal); I27.20 Pulmonary hypertension, unspecified ==

== ENCOUNTER → 2024-04-16 | Outpatient (CLI) | payer MEDICARE ==
[2024-04-16 16:41] LABS: BASO # 0.1 10^3/uL (0.0-0.2); BASO % 0.9 % (0.0-1.0); EOS # 0.3 10^3/uL (0.0-0.5); EOS % 3.8 % (0.0-3.0); HEMATOCRIT 38.2 % (42.0-52.0); HEMOGLOBIN 12.8 g/dl (13.5-17.5); LYMPH # 1.9 10^3/uL (1.5-5.0); LYMPH % 28.6 % (24.0-44.0); MEAN CORPUSCULAR HEMOGLOBIN 35.4 pg (27.0-33.0); MEAN CORPUSCULAR HGB CONC 33.5 g/dl (32.0-36.5); MEAN CORPUSCULAR VOLUME 105.5 fl (80.0-96.0); MONO # 0.8 10^3/uL (0.0-0.8); MONO % 11.3 % (2.0-8.0); NEUTROPHILS # 3.6 10^3/uL (1.5-8.5); NEUTROPHILS % 55.1 % (36.0-66.0); PLATELET COUNT, AUTOMATED 146 10^3/uL (150-450); RED BLOOD COUNT 3.62 10^6/uL (4.30-6.10); WHITE BLOOD COUNT 6.6 10^3/uL (4.0-10.0)
[2024-04-16 16:55] LABS: ALBUMIN 3.8 G/DL (3.2-5.2); ALKALINE PHOSPHATASE 159 U/L (40-129); ALT/SGPT 30 U/L (7.0-40); AST/SGOT 17 U/L (<34); BLOOD UREA NITROGEN 9 MG/DL (9-23); CALCIUM LEVEL 9.2 MG/DL (8.3-10.6); CARBON DIOXIDE LEVEL 29 MMOL/L (20-31); CHLORIDE LEVEL 107 MMOL/L (98-107); CREATININE FOR GFR 0.97 MG/DL (0.70-1.30); GLOMERULAR FILTRATION RATE > 60.0 (>35); GLUCOSE, FASTING 205 MG/DL (74-106); SODIUM LEVEL 142 MMOL/L (136-145); TOTAL PROTEIN 6.6 G/DL (5.7-8.2)
== END ==
LOC: M WUC 13:26
PROVIDERS: ATTEND Registered Nurse
DX: I35.0 Nonrheumatic aortic (valve) stenosis (principal)

== ENCOUNTER → 2024-05-14 | Outpatient (CLI) | payer MEDICARE ==
[2024-05-14 12:22] LABS: BASO % 0.4 % (0.0-1.0); EOS # 0.2 10^3/uL (0.0-0.5); EOS % 3.4 % (0.0-3.0); HEMATOCRIT 39.1 % (42.0-52.0); LYMPH % 41.6 % (24.0-44.0); MEAN CORPUSCULAR HEMOGLOBIN 34.4 pg (27.0-33.0); MEAN CORPUSCULAR HGB CONC 33.2 g/dl (32.0-36.5); MEAN CORPUSCULAR VOLUME 103.4 fl (80.0-96.0); MONO # 0.5 10^3/uL (0.0-0.8); MONO % 11.4 % (2.0-8.0); PLATELET COUNT, AUTOMATED 152 10^3/uL (150-450); RED BLOOD COUNT 3.78 10^6/uL (4.30-6.10); WHITE BLOOD COUNT 4.7 10^3/uL (4.0-10.0)
[2024-05-14 12:39] LABS: HEMOGLOBIN A1c 6.1 % (4.0-6.0)
[2024-05-14 12:50] LABS: MAU/CREAT RATIO 103.1 MCG/MG (0.0-30.0)
[2024-05-14 12:53] LABS: ALKALINE PHOSPHATASE 156 U/L (40-129); ALT/SGPT 33 U/L (7.0-40); AST/SGOT 28 U/L (<34); BILIRUBIN,TOTAL 1.3 MG/DL (0.3-1.2); BLOOD UREA NITROGEN 13 MG/DL (9-23); C REACTIVE PROTEIN QUANTITATIV < 0.50 MG/DL (<1.0); CARBON DIOXIDE LEVEL 29 MMOL/L (20-31); CHLORIDE LEVEL 107 MMOL/L (98-107); CHOLESTEROL LEVEL 103 MG/DL (<200); CHOLESTEROL RISK RATIO 2.33 (<5); CREATININE FOR GFR 0.98 MG/DL (0.70-1.30); GLOMERULAR FILTRATION RATE > 60.0 (>35); GLUCOSE, FASTING 146 MG/DL (74-106); HDL CHOLESTEROL 44.1 MG/DL (>40); LDL CHOLESTEROL 33.9 MG/DL (<100); NON-HDL-C 58.9 MG/DL; POTASSIUM SERUM 4.9 MMOL/L (3.5-5.1); SODIUM LEVEL 141 MMOL/L (136-145); TOTAL PROTEIN 7.2 G/DL (5.7-8.2); TRIGLYCERIDES LEVEL 125 MG/DL (<150)
[2024-05-14 12:54] LABS: FREE T4 1.22 NG/DL (0.89-1.76)
[2024-05-14 12:55] LABS: THYROID STIMULATING HORMONE 2.373 uIU/ML (0.55-4.78); VITAMIN B12 LEVEL 913 PG/ML (211-911)
== END ==
LOC: M WUC 10:14
PROVIDERS: ATTEND Internal Medicine Hematology
DX: M25.473 Effusion, unspecified ankle (principal); Z79.899 Other long term (current) drug therapy

== ENCOUNTER → 2024-06-09 | Outpatient (REF) | payer MEDICARE ==
[2024-06-09 18:32] LABS: BASO % 0.5 % (0.0-1.0); EOS # 0.1 10^3/uL (0.0-0.5); EOS % 2.3 % (0.0-3.0); HEMATOCRIT 41.8 % (42.0-52.0); HEMOGLOBIN 14.2 g/dl (13.5-17.5); LYMPH # 2.1 10^3/uL (1.5-5.0); LYMPH % 37.5 % (24.0-44.0); MONO # 0.5 10^3/uL (0.0-0.8); MONO % 9.4 % (2.0-8.0); NEUTROPHILS # 2.8 10^3/uL (1.5-8.5); NEUTROPHILS % 50.1 % (36.0-66.0); PLATELET COUNT, AUTOMATED 128 10^3/uL (150-450); RED BLOOD COUNT 4.06 10^6/uL (4.30-6.10); WHITE BLOOD COUNT 5.5 10^3/uL (4.0-10.0)
[2024-06-09 19:00] LABS: BLOOD UREA NITROGEN 16 MG/DL (9-23); CALCIUM LEVEL 10.1 MG/DL (8.3-10.6); CARBON DIOXIDE LEVEL 27 MMOL/L (20-31); CHLORIDE LEVEL 105 MMOL/L (98-107); CREATININE FOR GFR 0.99 MG/DL (0.70-1.30); GLOMERULAR FILTRATION RATE > 60.0 (>35); GLUCOSE, FASTING 243 MG/DL (74-106); POTASSIUM SERUM 4.6 MMOL/L (3.5-5.1); SODIUM LEVEL 140 MMOL/L (136-145)
== END ==
LOC: M LAB REF 16:10
PROVIDERS: ATTEND Internal Medicine Cardiovascular Disease
DX: I35.0 Nonrheumatic aortic (valve) stenosis (principal)

== ENCOUNTER → 2024-07-26 | Outpatient (CLI) | payer MEDICARE | LOC: M PLAIMG 09:37 | PROVIDERS: ATTEND Physician Assistant Medical | DX: M47.816 Spondylosis without myelopathy or radiculopathy, lumbar region (principal); M54.50 Low back pain, unspecified ==

== ENCOUNTER → 2024-08-03 | Outpatient (CLI) | payer MEDICARE | LOC: M CARPUL 11:59 | PROVIDERS: ATTEND Registered Nurse | DX: I35.0 Nonrheumatic aortic (valve) stenosis (principal) ==

== ENCOUNTER → 2025-01-27 | Outpatient (CLI) | payer MEDICARE ==
[~2025-01-27] MED LIST changes: +LIFI1DRO4 OP; +LIFI1DRO4 OU; -XIID5DRO OP; -XIID5DRO OU
[2025-01-27 14:04] LABS: BASO # 0.0 10^3/uL (0.0-0.2); BASO % 0.4 % (0.0-1.0); EOS # 0.2 10^3/uL (0.0-0.5); EOS % 3.2 % (0.0-3.0); LYMPH # 1.6 10^3/uL (1.5-5.0); LYMPH % 33.8 % (24.0-44.0); MONO # 0.5 10^3/uL (0.0-0.8); MONO % 10.1 % (2.0-8.0); NEUTROPHILS # 2.4 10^3/uL (1.5-8.5); NEUTROPHILS % 52.1 % (36.0-66.0); PLATELET COUNT, AUTOMATED 104 10^3/uL (150-450)
[2025-01-27 14:07] LABS: ALT/SGPT 41.0 U/L (7.0-40); AST/SGOT 31.0 U/L (<34); CALCIUM LEVEL 10.1 MG/DL (8.3-10.6); CARBON DIOXIDE LEVEL 31.0 MMOL/L (20-31); CHLORIDE LEVEL 104.0 MMOL/L (98-107); CREATININE FOR GFR 0.9 MG/DL (0.70-1.30); GLOMERULAR FILTRATION RATE 83.2 (>35); POTASSIUM SERUM 5.2 MMOL/L (3.5-5.1); SODIUM LEVEL 143.0 MMOL/L (136-145)
== END ==
LOC: M WUC 09:37
PROVIDERS: ATTEND Registered Nurse
DX: I35.0 Nonrheumatic aortic (valve) stenosis (principal)

== ENCOUNTER → 2025-05-05 | Outpatient (CLI) | payer MEDICARE ==
[2025-05-05 13:19] LABS: PLATELET COUNT, AUTOMATED 107 10^3/uL (150-450)
[2025-05-05 13:22] LABS: PSA SCREENING 0.26 NG/ML (< 4.00)
[2025-05-05 13:24] LABS: ALT/SGPT 22.0 U/L (7.0-40); AST/SGOT 27.0 U/L (<34); CALCIUM LEVEL 9.6 MG/DL (8.3-10.6); CARBON DIOXIDE LEVEL 29.0 MMOL/L (20-31); CHLORIDE LEVEL 105.0 MMOL/L (98-107); CHOLESTEROL LEVEL 97.0 MG/DL (<200); CHOLESTEROL RISK RATIO 2.06 (<5); CREATININE FOR GFR 0.92 MG/DL (0.70-1.30); GLOMERULAR FILTRATION RATE 80.5 (>35); LDL CHOLESTEROL 26.9 MG/DL (<100); NON-HDL-C 50.1 MG/DL; POTASSIUM SERUM 4.4 MMOL/L (3.5-5.1); SODIUM LEVEL 144.0 MMOL/L (136-145); TRIGLYCERIDES LEVEL 116.0 MG/DL (<150)
[2025-05-05 13:43] LABS: CREATININE, URINE 57.8 MG/DL
[2025-05-05 13:44] LABS: MALB URINE SIEMENS 33.0 MG/L; MAU/CREAT RATIO 57.0 MCG/MG (0.0-30.0)
[2025-05-05 13:48] LABS: ESTIMATED AVERAGE GLUCOSE 134.0 MG/DL (60-110)
== END ==
LOC: M PLALAB 10:50
PROVIDERS: ATTEND Family Medicine
DX: N40.1 Benign prostatic hyperplasia with lower urinary tract symptoms (principal); E11.29 Type 2 diabetes mellitus with other diabetic kidney complication; I10 Essential (primary) hypertension; E78.5 Hyperlipidemia, unspecified; Z12.5 Encounter for screening for malignant neoplasm of prostate
CPT/HCPCS: 36415; 80053; 80061; 82043; 82607; 83036; 85027; G0103